=== PATIENT | female | born 1975 | race American Indian/Alaskan Native ===

== ENCOUNTER 2016-06-13 11:01 | Emergency (ER) | payer MEDICAID ==
[2016-06-13 11:39] VITALS: BP 142/107
--- NOTE | 2016-06-13 11:57 | Emergency Department Report ---
Chief Complaint: Headache Stated Complaint: DIZZY/HEADACHE Time Seen by Provider: 06/13/16 11:51 - HPI History of Present Illness: 41-year-old female comes in with complaint of headache since Sunday she reports that the pain is all over. She reports that she had surgery on her nose and since then she's had headaches that, radiates from the nose across the face now back to the back of the head. She complains of dizziness since Sunday she does elicit that she has not had any blood pressure medicine to an half weeks. Secondary to insurance is not active. She is clean complain of nausea no vomiting. - Exam Vital Signs: Vital Signs 06/13/16 11:35 Temperature 98.0 F Pulse Rate 88 Respiratory 18 Rate Blood Pressure 142/107 O2 Sat by Pulse 98 Oximetry Physical Exam: Alert and oriented 3 no acute distress, cardiovascular S1-S2 regular rate and rhythm respiratory clear dictation bilateral some head tenderness from the maxillary sinus to the temporal and parietal area. MSE screening note: Focused history and physical exam performed. Due to findings the following was ordered: Patient been evaluated by this NSE provider. She'll be evaluated by fast track. ED Disposition for MSE Condition: Stable
[2016-06-13] MEDS ORDERED: TORADOL IM ONE (12:59)
--- NOTE | 2016-06-13 13:17 | Emergency Department Report ---
ED Headache HPI - General Chief Complaint: Headache Stated Complaint: DIZZY/HEADACHE Time Seen by Provider: 06/13/16 11:51 Source: patient Exam Limitations: no limitations - History of Present Illness Initial Comments: Patient presents today with a headache and dizziness 2 days she has taken Excedrin with no relief. She has a history of migraine. She states that she is having nausea, decreased appetite and the migraine is sensitive to light and noise. She states that this began in 2014 after having nasal surgery through ENT. She also admits to right ear pain and sinus pressure. Patient denies injury, hitting her head, LOC. Quality: severe Head Injury Location: other ("all over head") Associated Symptoms: denies symptoms, nasal congestion. denies: loss of consciousness, stiff neck Allergies/Adverse Reactions: Allergies No Known Allergies Allergy (Verified 06/13/16 11:40) Home Medications: Ambulatory Orders Fluticasone [Flonase] 1 spray NS QDAY #1 bottle 06/21/14 Ibuprofen [Motrin 800 MG tab] 800 mg PO Q8H PRN #30 tablet 06/21/14 Prednisone 40 mg PO DAILY #10 tablet 06/21/14 SUMAtriptan SUCCINATE [Imitrex] 100 mg PO ONCE PRN #10 tablet 09/24/14 amLODIPine [Norvasc] 5 mg PO DAILY #30 tab 09/24/14 Acetaminophen/Codeine [Tylenol #3] 1 tab PO Q6H PRN #20 tab 12/17/14 Doxycycline [Vibramycin CAP] 100 mg PO Q12HR #20 capsule 12/17/14 Ibuprofen [Motrin 600 MG tab] 600 mg PO Q8H PRN #30 tablet 12/17/14 metroNIDAZOLE [Flagyl TAB] 500 mg PO Q12HR #20 tab 12/17/14 Amoxicillin [Amoxicillin TAB] 875 mg PO BID #20 tablet 06/13/16 SUMAtriptan SUCCINATE [Imitrex] 50 mg PO BID #7 tab 06/13/16 amLODIPine [Norvasc] 10 mg PO DAILY #14 tab 06/13/16 ED Review of Systems ROS: Stated complaint: DIZZY/HEADACHE Other details as noted in HPI Constitutional: denies: chills, fever Eyes: other (patient admits to eye drainage, watering). denies: eye pain, eye discharge, vision change ENT: as per HPI Respiratory: denies: cough, shortness of breath, wheezing Cardiovascular: denies: chest pain, palpitations Gastrointestinal: denies: abdominal pain, nausea, diarrhea Genitourinary: denies: urgency, dysuria, discharge Musculoskeletal: as per HPI Skin: denies: rash, lesions Neurological: as per HPI, headache Psychiatric: anxiety (history) ED Past Medical Hx - Past Medical History Hx Hypertension: Yes Hx Congestive Heart Failure: No Hx Diabetes: No Hx Deep Vein Thrombosis: No Hx Renal Disease: No Hx Sickle Cell Disease: No Hx Headaches / Migraines: Yes Hx Seizures: No Hx Psychiatric Treatment: Yes (ANXIETY / DEPRESSION) Hx Asthma: No Hx COPD: No Hx HIV: No Additional medical history: INSOMNIA - Surgical History Additional Surgical History: x2. NASAL SURGERY. TUBAL LIGATION - Social History Smoking Status: Current Every Day Smoker Substance Use Type: None - Medications Home Medications: Home Medications Medication Instructions Recorded Confirmed Last Taken Type Fluticasone [Flonase] 1 spray NS QDAY #1 bottle 06/21/14 07/14/14 07/14/14 Rx Ibuprofen [Motrin 800 MG tab] 800 mg PO Q8H PRN #30 tablet 06/21/14 07/14/14 Rx Prednisone 40 mg PO DAILY #10 tablet 06/21/14 07/14/14 Unknown Rx SUMAtriptan SUCCINATE [Imitrex] 100 mg PO ONCE PRN #10 tablet 09/24/14 Unknown Rx amLODIPine [Norvasc] 5 mg PO DAILY #30 tab 09/24/14 Unknown Rx Acetaminophen/Codeine [Tylenol #3] 1 tab PO Q6H PRN #20 tab 12/17/14 Unknown Rx Doxycycline [Vibramycin CAP] 100 mg PO Q12HR #20 capsule 12/17/14 Unknown Rx Ibuprofen [Motrin 600 MG tab] 600 mg PO Q8H PRN #30 tablet 12/17/14 Unknown Rx metroNIDAZOLE [Flagyl TAB] 500 mg PO Q12HR #20 tab 12/17/14 Unknown Rx Amoxicillin [Amoxicillin TAB] 875 mg PO BID #20 tablet 06/13/16 Unknown Rx SUMAtriptan SUCCINATE [Imitrex] 50 mg PO BID #7 tab 06/13/16 Unknown Rx amLODIPine [Norvasc] 10 mg PO DAILY #14 tab 06/13/16 Unknown Rx ED Physical Exam - General Limitations: No Limitations General appearance: alert, in no apparent distress - Head Head exam: Present: atraumatic, normocephalic - Eye Eye exam: Present: normal appearance Pupils: Present: other (small amount of clear drainage present) - ENT ENT exam: Present: mucous membranes moist, TM's normal bilaterally - Expanded ENT Exam Expanded Mouth exam: Present: normal external inspection Teeth exam: Present: normal inspection Throat exam: Positive: normal inspection - Neck Neck exam: Present: normal inspection, tenderness (bilateral posterior cervical , no midline tenderness), full ROM - Respiratory Respiratory exam: Present: normal lung sounds bilaterally. Absent: respiratory distress, wheezes - Cardiovascular Cardiovascular Exam: Present: regular rate, normal rhythm. Absent: systolic murmur, diastolic murmur, rubs, gallop - GI/Abdominal GI/Abdominal exam: Present: soft, normal bowel sounds - Extremities Exam Extremities exam: Present: normal inspection, full ROM - Back Exam Back exam: Present: normal inspection, full ROM - Neurological Exam Neurological exam: Present: alert, oriented X3, CN II-XII intact, normal gait - Psychiatric Psychiatric exam: Present: normal affect, normal mood - Skin Skin exam: Present: warm, dry, intact, normal color. Absent: rash ED Course Vital Signs 06/13/16 11:35 Temperature 98.0 F Pulse Rate 88 Respiratory 18 Rate Blood Pressure 142/107 O2 Sat by Pulse 98 Oximetry ED Medical Decision Making - Medical Decision Making Patient presents with her typical migraine. She has had chronic migraines since 2014. She has had CT of her head in the past that was within normal. I will give her 2 weeks of amlodipine for her blood pressure due to her being out. I will give her Zofran for her nausea and a refill on Imitrex which she has taken in the past. She also received Toradol IM injection while in ED. I will also give her amoxicillin twice a day 10 days for sinusitis. - Differential Diagnosis migraine, headache Critical Care Time: No Critical care attestation.: If time is entered above; I have spent that time in minutes in the direct care of this critically ill patient, excluding procedure time. ED Disposition Clinical Impression: Chronic migraine, Sinusitis, acute, Nausea, Hypertension Clinical Impression: (Ruled Out): Chronic migraine w/o aura w/o status migrainosus, not intractable Disposition: DISCHARGED TO HOME OR SELFCARE Is pt being admited?: No Does the pt Need Aspirin: No Condition: Stable Instructions: Hypertension (ED), Migraine Headache (ED), Low Sodium Diet (ED), DASH Eating Plan (ED), Chronic Hypertension (ED), Sinusitis (ED) Prescriptions: Amoxicillin [Amoxicillin TAB] 875 mg PO BID #20 tablet SUMAtriptan SUCCINATE [Imitrex] 50 mg PO BID #7 tab amLODIPine [Norvasc] 10 mg PO DAILY #14 tab Referrals: [facility] [Outside] - 3-5 Days Forms: Work/School Release Form(ED) Time of Disposition: 13:28
== END 2016-06-13 13:46 | disposition home or self-care (01) ==
LOC: ED 11:01
DX: G43.909 Migraine, unspecified, not intractable, without status migrainosus (principal); J01.90 Acute sinusitis, unspecified; I10 Essential (primary) hypertension; R11.0 Nausea; F41.9 Anxiety disorder, unspecified
CPT/HCPCS: 96372; 99282; J1885

== ENCOUNTER 2016-11-07 14:17 | Emergency (ER) | payer MEDICAID ==
--- NOTE | 2016-11-07 14:55 | Emergency Department Report ---
Chief Complaint: Abdominal Pain Stated Complaint: LOW ABDOMINAL PAIN/LT SIDE Time Seen by Provider: 11/07/16 14:49 - HPI History of Present Illness: PT c/o RLQ abd pain x 1 year. PT states she was seen before and had US which showed a "mass" - ROS Review of Systems: - fever + abd pain + back pain + irregular menstrual cycle - Exam Vital Signs: Vital Signs 11/07/16 14:37 Temperature 98.4 F Pulse Rate 107 H Respiratory 16 Rate Blood Pressure 118/77 O2 Sat by Pulse 98 Oximetry Physical Exam: pt looks well, non toxic abd soft and non tender MSE screening note: Focused history and physical exam performed. Due to findings the following was ordered: labs ED Disposition for MSE Condition: Stable Instructions: Abdominal Pain (ED)
[2016-11-07 15:10] LABS: Basophils % (Auto) 0.4 % (0.0-1.8); Eosinophils % (Auto) 2.2 % (0.0-4.3); Hematocrit 39.2 % (30.3-42.9); Hemoglobin 12.8 gm/dl (10.1-14.3); Mean Corpuscular HGB Conc 33 % (30-34); Mean Corpuscular Hemoglobin 30 pg (28-32); Mean Corpuscular Volume 91 fl (79-97); Platelet Count 262 K/mm3 (140-440); Red Blood Count 4.31 M/mm3 (3.65-5.03); Red Cell Distribution Width 14.6 % (13.2-15.2)
[2016-11-07 15:26] LABS: Alanine Aminotransferase 16 units/L (7-56); Albumin 4.6 g/dL (3.9-5); Albumin/Globulin Ratio 1.4 %; Alkaline Phosphatase 52 units/L (35-129); Anion Gap 16 mmol/L; BUN/Creatinine Ratio 13.75; Blood Urea Nitrogen 11 mg/dL (7-17); Calcium 9.1 mg/dL (8.4-10.2); Carbon Dioxide 28 mmol/L (22-30); Glucose 107 mg/dL (65-100); Lipase 22 units/L (13-60); Sodium 143 mmol/L (137-145); Total Protein 7.8 g/dL (6.3-8.2)
[2016-11-07] MEDS ORDERED: TORADOL IM ONE (22:02)
[2016-11-07] MEDS ORDERED: PERCOCET 5/325 PO ONE (22:02)
[2016-11-07 22:51] LABS: Bilirubin,Urine NEG (Negative); Blood,Urine MOD (Negative); Ketones,Urine NEG (Negative); Leukocyte Esterase,Urine NEG (Negative); Mucus,Urine FEW /HPF; Nitrite,Urine NEG (Negative); Protein,Urine <15 mg/dL mg/dL (Negative); Urobilinogen,Urine < 2.0 mg/dL (<2.0)
--- NOTE | 2016-11-07 23:34 | Ultrasound Report ---
FINAL REPORT EXAM: US TRANSVAGINAL HISTORY: rlq pain, hx of ovarian "mass vs cyst" TECHNIQUE: Real-time sonography was performed of the pelvis endovaginally. Images are submitted for interpretation. PRIORS: None. FINDINGS: The uterus appears normal measuring 8.2 x 4.1 x 5.4. The endometrial stripe appears normal measuring 6 mm. The right ovary appears normal measuring 2.6 x 1.7 x 1.6 cm. The left ovary was not identified. Color duplex evaluation of the right ovary shows flow. There is no free pelvic fluid. IMPRESSION: Normal uterus and right ovary. Left ovary not identified.
--- NOTE | 2016-11-07 23:35 | Ultrasound Report ---
FINAL REPORT EXAM: US PELVIS DUPLEX DOPPLER COMP HISTORY: rlq pain, hx of ovarian "mass vs cyst" TECHNIQUE: Real-time sonography was performed of the pelvis transabdominally. Images are submitted for interpretation. PRIORS: None. FINDINGS: The uterus appears normal measuring 8.2 x 4.1 x 5.4. The endometrial stripe appears normal measuring 6 mm. The right ovary appears normal measuring 2.6 x 1.7 x 1.6 cm. The left ovary was not identified. Color duplex evaluation of the right ovary shows flow. There is no free pelvic fluid. IMPRESSION: Normal uterus and right ovary. Left ovary not identified.
[2016-11-07] MEDS ORDERED: ZOFRAN IV ONE (23:48)
[2016-11-08] MEDS ORDERED: NACL ONE (00:41)
--- NOTE | 2016-11-08 01:01 | Emergency Department Report ---
ED Abdominal Pain HPI - General Chief Complaint: Abdominal Pain Stated Complaint: LOW ABDOMINAL PAIN/LT SIDE Time Seen by Provider: 11/07/16 14:49 Source: patient Mode of arrival: Ambulatory Limitations: No Limitations - History of Present Illness Initial Comments: 41-year-old female with a past medical history hypertension, anxiety, and depression with previous surgical history 2 and tubal ligation presents to the hospital complaining of ongoing right lower quadrant pain times one year. Symptoms are progressively worsening. Patient states she was evaluated 3 months ago had ultrasound that revealed a "mass in her abdomen". Patient typically has regular menstrual cycles reports she had 3 separate episodes of vaginal bleeding this month. Patient never followed up after receiving her ultrasound and did not reschedule her PUBLIC SAFETY TELECOMMUNICATOR visit. No reports of fever, nausea, vomiting, or dysuria. Severity scale (0 -10): 0 - Related Data Previous Rx's Medication Instructions Recorded Last Taken Type Fluticasone [Flonase] 1 spray NS QDAY #1 bottle 06/21/14 07/14/14 Rx Doxycycline [Vibramycin CAP] 100 mg PO Q12HR #20 capsule 12/17/14 Unknown Rx metroNIDAZOLE [Flagyl TAB] 500 mg PO Q12HR #20 tab 12/17/14 Unknown Rx amLODIPine [Norvasc] 10 mg PO DAILY #14 tab 06/13/16 Unknown Rx HYDROcodone/APAP 7.5-325 [[place] 1 each PO Q6HR PRN #20 tablet 11/08/16 Unknown Rx 7.5/325] Ibuprofen [Motrin] 800 mg PO Q8HR PRN #30 tablet 11/08/16 Unknown Rx Ondansetron [Zofran Odt] 4 mg PO Q8HR PRN #20 tab.rapdis 11/08/16 Unknown Rx Allergies Allergy/AdvReac Type Severity Reaction Status Date / Time No Known Allergies Allergy Verified 06/13/16 11:40 ED Review of Systems ROS: Stated complaint: LOW ABDOMINAL PAIN/LT SIDE Other details as noted in HPI Comment: All other systems reviewed and negative Other: Constitutional: No fevers chills Eyes: No eye pain visual changes ENT: No ear pain or throat pain Neck: Denies pain Respiratory: Denies cough wheezing shortness of breath Cardiovascular: Denies chest pain, palpitations, syncope GI: as per hpi : Denies dysuria Musculoskeletal: Denies back pain Skin: Denies rash, lesions, erythema Neurologic: Denies headache, numbness, weakness Psychiatric: Denies suicidal ideation, hallucinations ED Past Medical Hx - Past Medical History Hx Hypertension: Yes Hx Congestive Heart Failure: No Hx Diabetes: No Hx Deep Vein Thrombosis: No Hx Renal Disease: No Hx Sickle Cell Disease: No Hx Headaches / Migraines: Yes Hx Seizures: No Hx Psychiatric Treatment: Yes (ANXIETY / DEPRESSION) Hx Asthma: No Hx COPD: No Hx HIV: No Additional medical history: INSOMNIA - Surgical History Additional Surgical History: x2. NASAL SURGERY. TUBAL LIGATION - Social History Smoking Status: Current Every Day Smoker Substance Use Type: None - Medications Home Medications: Home Medications Medication Instructions Recorded Confirmed Last Taken Type Fluticasone [Flonase] 1 spray NS QDAY #1 bottle 06/21/14 11/08/16 07/14/14 Rx Doxycycline [Vibramycin CAP] 100 mg PO Q12HR #20 capsule 12/17/14 11/08/16 Unknown Rx metroNIDAZOLE [Flagyl TAB] 500 mg PO Q12HR #20 tab 12/17/14 11/08/16 Unknown Rx amLODIPine [Norvasc] 10 mg PO DAILY #14 tab 06/13/16 11/08/16 Unknown Rx HYDROcodone/APAP 7.5-325 [[place] 1 each PO Q6HR PRN #20 tablet 11/08/16 Unknown Rx 7.5/325] Ibuprofen [Motrin] 800 mg PO Q8HR PRN #30 tablet 11/08/16 Unknown Rx Ondansetron [Zofran Odt] 4 mg PO Q8HR PRN #20 tab.rapdis 11/08/16 Unknown Rx ED Physical Exam - General Limitations: No Limitations - Other Other exam information: General: No limitations, patient is alert in no acute distress Head exam: Atraumatic, normocephalic Eyes exam: Normal appearance ENT: Moist mucous membrane, normal oropharynx Neck exam: Normal inspection, full range of motion Respiratory exam: Clear to auscultation bilateral, no wheezes, rales, crackles Cardiovascular: Normal rate and rhythm, normal heart sounds Abdomen: Soft, nondistended, RLQ tenderness, with normal bowel sounds, no rebound, or guarding Extremity: Full range of motion normal inspection no deformity Back: Normal Inspection, full range of motion, no tenderness Neurologic: Alert, oriented x3, cranial nerves intact, no motor or sensory deficit Psychiatric: normal affect, normal mood Skin: Warm, dry, intact ED Course Vital Signs 11/07/16 11/07/16 11/07/16 14:37 21:47 21:51 Temperature 98.4 F Pulse Rate 107 H Respiratory 16 Rate Blood Pressure 118/77 O2 Sat by Pulse 98 100 100 Oximetry 11/07/16 11/07/16 11/07/16 21:58 22:01 22:16 Temperature Pulse Rate Respiratory 18 Rate Blood Pressure 123/74 O2 Sat by Pulse 100 99 Oximetry 11/07/16 11/07/16 11/07/16 22:20 22:58 23:00 Temperature Pulse Rate Respiratory Rate Blood Pressure 123/74 116/78 114/63 O2 Sat by Pulse 100 99 98 Oximetry 11/07/16 11/08/16 23:30 00:00 Temperature Pulse Rate Respiratory Rate Blood Pressure 117/75 118/73 O2 Sat by Pulse 100 98 Oximetry ED Medical Decision Making - Lab Data Result diagrams: 11/07/16 14:52 11/07/16 14:52 - Radiology Data Radiology results: report reviewed Transvaginal ultrasound by Doppler and pelvic ultrasound did not reveal any acute abnormality. Left ovary not visualized CT abdomen and pelvis IV contrast: No acute findings. - Medical Decision Making Patient offered pelvic exam given normal imaging findings. Patient declined stating no concerns for STD. Pain has been ongoing times one year. No acute lab, urine, or imaging abnormality identified today. Outpatient follow-up with PUBLIC SAFETY TELECOMMUNICATOR will be encouraged - Differential Diagnosis ovarian cyst, renal colic, ectopic , UTI Critical Care Time: No Critical care attestation.: If time is entered above; I have spent that time in minutes in the direct care of this critically ill patient, excluding procedure time. ED Disposition Clinical Impression: Chronic right lower quadrant pain, Metrorrhagia Disposition: - TO HOME OR SELFCARE Is pt being admited?: No Does the pt Need Aspirin: No Condition: Stable Instructions: Abdominal Pain (ED), Dysfunctional Uterine Bleeding (ED) Additional Instructions: Take the medication as prescribed. Return if symptoms worsen. Follow-up with your PUBLIC SAFETY TELECOMMUNICATOR doctor for further management. Take the copy of your ultrasound and CAT scan to your doctor for follow-up Prescriptions: HYDROcodone/APAP 7.5-325 [[place] 7.5/325] 1 each PO Q6HR PRN #20 tablet PRN Reason: Pain Ibuprofen [Motrin] 800 mg PO Q8HR PRN #30 tablet PRN Reason: Pain Ondansetron [Zofran Odt] 4 mg PO Q8HR PRN #20 tab.rapdis PRN Reason: Nausea And Vomiting Referrals: your, mechanical engineering manager doctor [Other] - 3-5 Days Time of Disposition: 02:40
[2016-11-08] MEDS ORDERED: MORPHINE IV ONE (01:43)
--- NOTE | 2016-11-08 02:03 | Cat Scan Report ---
FINAL REPORT PROCEDURE: CT ABDOMEN PELVIS W CON TECHNIQUE: Computerized axial tomography of the abdomen and pelvis was performed after the IV injection of iodinated nonionic contrast. HISTORY: rlq pain COMPARISON: No prior studies are available for comparison. FINDINGS: Visualized lower thorax: No significant abnormality. Liver: Normal size and attenuation. Spleen: Normal size and attenuation. Gallbladder and biliary system: Normal. Pancreas: Normal. Adrenals: Normal. Kidneys: There are no kidney stones or ureteral stones. There is no hydronephrosis.. GI tract: There is no bowel obstruction, colitis or enteritis. The appendix is normal.. Lymph nodes and mesentery: Normal. Vasculature: Normal. Bladder: Normal. Reproductive organs: The uterus and ovaries are unremarkable.. Peritoneum: There is no ascites, free air, abscess or adenopathy.. Musculoskeletal structures: No significant abnormality. Other: None. IMPRESSION: There are no kidney stones or ureteral stones. There is no hydronephrosis.. There is no bowel obstruction, colitis or enteritis. The appendix is normal.. The uterus and ovaries are unremarkable.. There is no ascites, free air, abscess or adenopathy..
[2016-11-08 03:11] VITALS: BP 110/68
== END 2016-11-08 03:00 | disposition home or self-care (01) ==
LOC: ED 14:17
DX: N92.1 Excessive and frequent menstruation with irregular cycle (principal); R10.31 Right lower quadrant pain; R19.00 Intra-abdominal and pelvic swelling, mass and lump, unspecified site; G89.29 Other chronic pain; I10 Essential (primary) hypertension; G43.909 Migraine, unspecified, not intractable, without status migrainosus; F41.9 Anxiety disorder, unspecified; F32.9 Major depressive disorder, single episode, unspecified; F17.200 Nicotine dependence, unspecified, uncomplicated
CPT/HCPCS: 36415; 74177; 76830; 80053; 81001; 83690; 84703; 85025; 93975; 96372; 96374; 96375; 99284; J1885; J2270; J2405; Q9967

== ENCOUNTER 2018-06-14 19:55 | Emergency (ER) | payer MEDICAID ==
[2018-06-15] MEDS ORDERED: TORADOL IV ONE (00:44)
[2018-06-15] MEDS ORDERED: BENADRYL IV ONE (00:44)
[2018-06-15] MEDS ORDERED: NACL 0.9% 1000 ML 1,000 ML IV ONE (00:44)
[2018-06-15] MEDS ORDERED: REGLAN IV ONE (00:44)
--- NOTE | 2018-06-15 01:27 | Emergency Department Report ---
ED Headache HPI - General Chief Complaint: Headache Stated Complaint: HYPERTENSVE EPISODE Time Seen by Provider: 06/15/18 00:29 Source: patient - History of Present Illness Initial Comments: 33-year-old female history of migraines presents to ED with 3 day history of right-sided headache. Patient reports associated dizziness, also right ear pain. Patient denies fever, nausea or vomiting. She reports history of multiple sinus infections in the past. Reports some nasal congestion as well. Timing/Duration: other (3 days) Quality: moderate Recent Head Trauma: no recent headache/trauma Associated Symptoms: fatigue, nasal congestion. denies: fever/chills, nausea/vomiting Allergies/Adverse Reactions: Allergies No Known Allergies Allergy (Verified 06/14/18 20:07) Home Medications: Ambulatory Orders Fluticasone [Flonase] 1 spray NS QDAY #1 bottle 06/21/14 Doxycycline [Vibramycin CAP] 100 mg PO Q12HR #20 capsule 12/17/14 metroNIDAZOLE [Flagyl TAB] 500 mg PO Q12HR #20 tab 12/17/14 amLODIPine [Norvasc] 10 mg PO DAILY #14 tab 06/13/16 HYDROcodone/APAP 7.5-325 [[place] 7.5/325] 1 each PO Q6HR PRN #20 tablet 11/08/16 Ibuprofen [Motrin] 800 mg PO Q8HR PRN #30 tablet 11/08/16 Ondansetron [Zofran Odt] 4 mg PO Q8HR PRN #20 tab.rapdis 11/08/16 Butalb/Acetamin/Caff 50-325-40 [Fioricet] 1 tab PO Q6HR PRN #10 tab 06/15/18 Naproxen [Naprosyn] 500 mg PO BID #20 tablet 06/15/18 ED Review of Systems ROS: Stated complaint: HYPERTENSVE EPISODE Other details as noted in HPI Comment: All other systems reviewed and negative Constitutional: malaise. denies: chills, fever ENT: congestion Respiratory: denies: cough Gastrointestinal: denies: nausea, vomiting Neurological: headache. denies: numbness, paresthesias ED Past Medical Hx - Past Medical History Previous Medical History?: Yes Hx Hypertension: Yes Hx Congestive Heart Failure: No Hx Diabetes: No Hx Deep Vein Thrombosis: No Hx Renal Disease: No Hx Sickle Cell Disease: No Hx Headaches / Migraines: Yes Hx Seizures: No Hx Psychiatric Treatment: Yes (ANXIETY / DEPRESSION) Hx Asthma: No Hx COPD: No Hx HIV: No Additional medical history: INSOMNIA, vertigo - Surgical History Past Surgical History?: Yes Additional Surgical History: x2. NASAL SURGERY. TUBAL LIGATION - Social History Smoking Status: Former Smoker Substance Use Type: Marijuana - Medications Home Medications: Home Medications Medication Instructions Recorded Confirmed Last Taken Type Fluticasone [Flonase] 1 spray NS QDAY #1 bottle 06/21/14 11/08/16 07/14/14 Rx Doxycycline [Vibramycin CAP] 100 mg PO Q12HR #20 capsule 12/17/14 11/08/16 Unknown Rx metroNIDAZOLE [Flagyl TAB] 500 mg PO Q12HR #20 tab 12/17/14 11/08/16 Unknown Rx amLODIPine [Norvasc] 10 mg PO DAILY #14 tab 06/13/16 11/08/16 Unknown Rx HYDROcodone/APAP 7.5-325 [[place] 1 each PO Q6HR PRN #20 tablet 11/08/16 Unknown Rx 7.5/325] Ibuprofen [Motrin] 800 mg PO Q8HR PRN #30 tablet 11/08/16 Unknown Rx Ondansetron [Zofran Odt] 4 mg PO Q8HR PRN #20 tab.rapdis 11/08/16 Unknown Rx Butalb/Acetamin/Caff 50-325-40 1 tab PO Q6HR PRN #10 tab 06/15/18 Unknown Rx [Fioricet] Naproxen [Naprosyn] 500 mg PO BID #20 tablet 06/15/18 Unknown Rx ED Physical Exam - General Limitations: No Limitations General appearance: alert, in no apparent distress - Head Head exam: Present: atraumatic, normocephalic - Eye Eye exam: Present: normal appearance - ENT ENT exam: Present: other (right frontal and maxillary sinus tenderness) - Neck Neck exam: Present: normal inspection - Respiratory Respiratory exam: Present: normal lung sounds bilaterally. Absent: respiratory distress - Cardiovascular Cardiovascular Exam: Present: normal rhythm, tachycardia - GI/Abdominal GI/Abdominal exam: Present: soft. Absent: distended, tenderness - Extremities Exam Extremities exam: Present: normal inspection - Neurological Exam Neurological exam: Present: alert, oriented X3, CN II-XII intact. Absent: motor sensory deficit - Psychiatric Psychiatric exam: Present: normal affect, normal mood - Skin Skin exam: Present: warm, dry, intact, normal color ED Course Vital Signs 06/14/18 20:01 Temperature 99.4 F Pulse Rate 110 H Respiratory 16 Rate Blood Pressure 144/84 O2 Sat by Pulse 97 Oximetry ED Medical Decision Making - Radiology Data Radiology results: report reviewed, image reviewed - Medical Decision Making 43 yo F, likely right sided migraine AL[place]. CT Head negative. Pt given IV fluids, toradol, reglan, and benadryl. Now reports resolution of ALCALA. Normal neuro exam. Will discharge at this time. Return precautions given. - Differential Diagnosis migraine, sinusitis, URI Critical care attestation.: If time is entered above; I have spent that time in minutes in the direct care of this critically ill patient, excluding procedure time. ED Disposition Clinical Impression: Migraine headache Disposition: TO HOME OR SELFCARE Is pt being admited?: No Condition: Stable Prescriptions: Butalb/Acetamin/Caff 50-325-40 [Fioricet] 1 tab PO Q6HR PRN #10 tab PRN Reason: Headache Naproxen [Naprosyn] 500 mg PO BID #20 tablet Referrals: JONAS VILLANUEVA MD [Primary Care Provider] - 3-5 Days NICHOLE KANG MD [Referring] - 3-5 Days Time of Disposition: 02:19
--- NOTE | 2018-06-15 01:53 | Cat Scan Report ---
FINAL REPORT PROCEDURE: CT HEAD/BRAIN WO CON TECHNIQUE: Computerized tomography of the head was performed without contrast material. HISTORY: headache COMPARISON: No prior studies are available for comparison. FINDINGS: Skull and scalp: Normal. Paranasal sinuses: Normal. Ventricles and subarachnoid spaces: Normal. Cerebrum: No evidence of hemorrhage, acute infarction or mass . Cerebellum and brainstem: No evidence of hemorrhage, acute infarction or mass. Vasculature: Normal. Comments: None. IMPRESSION: Normal Examination
[2018-06-15 02:22] VITALS: BP 118/75
== END 2018-06-15 03:13 | disposition home or self-care (01) ==
LOC: ED 19:55
DX: G43.909 Migraine, unspecified, not intractable, without status migrainosus (principal); I10 Essential (primary) hypertension; F41.9 Anxiety disorder, unspecified; F32.9 Major depressive disorder, single episode, unspecified; F12.10 Cannabis abuse, uncomplicated; Z98.51 Tubal ligation status; Z87.891 Personal history of nicotine dependence
CPT/HCPCS: 70450; 96361; 96374; 96375; 99284; J1200; J1885; J2765; J7030

== ENCOUNTER 2018-08-11 13:50 | Emergency (ER) | payer MEDICAID ==
--- NOTE | 2018-08-11 14:09 | Emergency Department Report ---
Chief Complaint: Upper Respiratory Infection Stated Complaint: CHEST PAIN/(R) SIDE PAIN/COUGH Time Seen by Provider: 08/11/18 14:06 - HPI History of Present Illness: COUGH 5 DAYS CHILLS POS SOB CHEST PAIN ON RIGHT SIDE OTC MEDS NOT HELPING NO HX BLOOD CLOTS HER 101 SAT 100% SSIDE MED PCP RX BP MED PMH HTN VERTIGO STOPPED SMOKING 8 M AGO NO DRUGS NO ETOH MENSES CURRENT MOM- DM, HUEY., HTN DAD AW MSE COMPLETED MSE screening note: Focused history and physical exam performed. Due to findings the following was ordered: ED Disposition for MSE Condition: Stable
[2018-08-11 14:11] VITALS: BP 137/82
--- NOTE | 2018-08-11 15:16 | XRay Report ---
PROCEDURE: XR CHEST ROUTINE 2V TECHNIQUE: Chest radiograph, frontal and lateral views. HISTORY: COUGH AND CP COMPARISONS: None currently available. FINDINGS: Cardiac silhouette is within normal limits. There is no effusion. There is no pneumothorax. There is no consolidation. Prominent bilateral perihi lar peribronchial thickening. Nodular density in the right perihilar region and measures approximatel y 5 mm. There are no suspicious osseous lesions. IMPRESSION: * Pulmonary findings may represent pneumonia (possibly viral), bronchitis, or pulmonary vascular con gestion. * Nonspecific nodular density in the right midlung. Comparison with priors or a CT chest may be help ful if clinically indicated. This document is electronically signed by David Lombardi MD., August 11 2018 03:14:38 PM ET
[2018-08-11 15:33] LABS: Hematocrit 36.1 % (30.3-42.9); Hemoglobin 12.1 gm/dl (10.1-14.3); Mean Corpuscular HGB Conc 33 % (30-34); Mean Corpuscular Volume 93 fl (79-97); Platelet Count 262 K/mm3 (140-440); Red Cell Distribution Width 14.2 % (13.2-15.2)
[2018-08-11 15:44] LABS: BUN/Creatinine Ratio 11; Blood Urea Nitrogen 8 mg/dL (7-17); Calcium 9.4 mg/dL (8.4-10.2); Hemolysis Index 4
[2018-08-11] MEDS ORDERED: TESSALON PERLES PO ONE (16:46)
[2018-08-11] MEDS ORDERED: LEVAQUIN PO ONE (16:48)
--- NOTE | 2018-08-11 16:48 | Emergency Department Report ---
Upper Respiratory HPI - HPI Chief Complaint: Upper Respiratory Infection Stated Complaint: CHEST PAIN/(R) SIDE PAIN/COUGH Time Seen by Provider: 08/11/18 14:06 Duration: 1 week URI Symptoms: Rhinorrhea: Yes, Sore Throat: No, Ear Pain: No, Cough: Yes, Shortness of Breath: No, Sick Contacts: No, Unable to Take Fluids: No, Urine Output Abnormal: No, Listless Behavior: No Other History: This is a 43-year-old female nontoxic, well nourished in appearance, no acute signs of distress presents to the ED with c/o of productive cough, body aches, rhinorrhea, nasal congestion x1 week. Patient describes productive cough as yellow mucus production. Patient denies any sick contact. Patient denies any recent travels, long car, recent hospital stays. Patient denies any calf pain or calf tenderness. Patient denies any chest pain, short of breath, fever, chills, nausea, vomiting, hemoptysis, numbness, tingling, headache or stiff neck. Patient denies any allergies. - Home Meds and Allergies Home Medications: Previous Rx's Medication Instructions Recorded Last Taken Type Fluticasone [Flonase] 1 spray NS QDAY #1 bottle 06/21/14 07/14/14 Rx Doxycycline [Vibramycin CAP] 100 mg PO Q12HR #20 capsule 12/17/14 Unknown Rx metroNIDAZOLE [Flagyl TAB] 500 mg PO Q12HR #20 tab 12/17/14 Unknown Rx amLODIPine [Norvasc] 10 mg PO DAILY #14 tab 06/13/16 Unknown Rx HYDROcodone/APAP 7.5-325 [[place] 1 each PO Q6HR PRN #20 tablet 11/08/16 Unknown Rx 7.5/325] Ibuprofen [Motrin] 800 mg PO Q8HR PRN #30 tablet 11/08/16 Unknown Rx Ondansetron [Zofran Odt] 4 mg PO Q8HR PRN #20 tab.rapdis 11/08/16 Unknown Rx Butalb/Acetamin/Caff 50-325-40 1 tab PO Q6HR PRN #10 tab 06/15/18 Unknown Rx [Fioricet] Naproxen [Naprosyn] 500 mg PO BID #20 tablet 06/15/18 Unknown Rx Benzonatate [Tessalon Perle] 100 mg PO Q8H PRN #20 capsule 08/11/18 Unknown Rx Ibuprofen [Motrin] 600 mg PO Q8H PRN #20 tablet 08/11/18 Unknown Rx Prednisone [predniSONE 10 mg 10 mg PO .TAPER #1 tab.ds.pk 08/11/18 Unknown Rx (6-Day Pack, 21 Tabs)] levoFLOXacin [Levaquin TAB] 750 mg PO QDAY #7 tablet 08/11/18 Unknown Rx Allergies/Adverse Reactions: Allergies Allergy/AdvReac Type Severity Reaction Status Date / Time No Known Allergies Allergy Verified 06/14/18 20:07 ED Review of Systems ROS: Stated complaint: CHEST PAIN/(R) SIDE PAIN/COUGH Other details as noted in HPI Constitutional: denies: chills, fever Eyes: denies: eye pain, eye discharge, vision change ENT: congestion. denies: ear pain, throat pain Respiratory: cough. denies: shortness of breath, wheezing Cardiovascular: denies: chest pain, palpitations Endocrine: no symptoms reported Gastrointestinal: denies: abdominal pain, nausea, diarrhea Genitourinary: denies: urgency, dysuria, discharge Musculoskeletal: denies: back pain, joint swelling, arthralgia Skin: denies: rash, lesions Neurological: denies: headache, weakness, paresthesias Psychiatric: denies: anxiety, depression Hematological/Lymphatic: denies: easy bleeding, easy bruising ED Past Medical Hx - Past Medical History Previous Medical History?: Yes Hx Hypertension: Yes Hx Congestive Heart Failure: No Hx Diabetes: No Hx Deep Vein Thrombosis: No Hx Renal Disease: No Hx Sickle Cell Disease: No Hx Headaches / Migraines: Yes Hx Seizures: No Hx Psychiatric Treatment: Yes (ANXIETY / DEPRESSION) Hx Asthma: No Hx COPD: No Hx HIV: No Additional medical history: INSOMNIA, vertigo - Surgical History Past Surgical History?: Yes Additional Surgical History: x2. NASAL SURGERY. TUBAL LIGATION - Social History Smoking Status: Never Smoker Substance Use Type: None - Medications Home Medications: Home Medications Medication Instructions Recorded Confirmed Last Taken Type Fluticasone [Flonase] 1 spray NS QDAY #1 bottle 06/21/14 11/08/16 07/14/14 Rx Doxycycline [Vibramycin CAP] 100 mg PO Q12HR #20 capsule 12/17/14 11/08/16 Unknown Rx metroNIDAZOLE [Flagyl TAB] 500 mg PO Q12HR #20 tab 12/17/14 11/08/16 Unknown Rx amLODIPine [Norvasc] 10 mg PO DAILY #14 tab 06/13/16 11/08/16 Unknown Rx HYDROcodone/APAP 7.5-325 [[place] 1 each PO Q6HR PRN #20 tablet 11/08/16 Unknown Rx 7.5/325] Ibuprofen [Motrin] 800 mg PO Q8HR PRN #30 tablet 11/08/16 Unknown Rx Ondansetron [Zofran Odt] 4 mg PO Q8HR PRN #20 tab.rapdis 11/08/16 Unknown Rx Butalb/Acetamin/Caff 50-325-40 1 tab PO Q6HR PRN #10 tab 06/15/18 Unknown Rx [Fioricet] Naproxen [Naprosyn] 500 mg PO BID #20 tablet 06/15/18 Unknown Rx Benzonatate [Tessalon Perle] 100 mg PO Q8H PRN #20 capsule 08/11/18 Unknown Rx Ibuprofen [Motrin] 600 mg PO Q8H PRN #20 tablet 08/11/18 Unknown Rx Prednisone [predniSONE 10 mg 10 mg PO .TAPER #1 tab.ds.pk 08/11/18 Unknown Rx (6-Day Pack, 21 Tabs)] levoFLOXacin [Levaquin TAB] 750 mg PO QDAY #7 tablet 08/11/18 Unknown Rx ED Bronchiolitis Physical Exam - Exam General: Vital signs noted. No distress. Alert and acting appropriately. Neurologic: Alert and oriented, no deficits. Musculoskeletal: Unremarkable. ED Bronchiolitis Tests - Testing Testing: CXR: Abnormal/Positive ED Physical Exam - General Limitations: No Limitations General appearance: alert, in no apparent distress - Head Head exam: Present: atraumatic, normocephalic - Eye Eye exam: Present: normal appearance - ENT ENT exam: Present: normal exam, normal orophraynx - Neck Neck exam: Present: normal inspection, full ROM. Absent: tenderness, meningismus, lymphadenopathy - Respiratory Respiratory exam: Present: normal lung sounds bilaterally. Absent: respiratory distress, wheezes, rales, rhonchi, stridor, chest wall tenderness, accessory muscle use, decreased breath sounds, prolonged expiratory - Cardiovascular Cardiovascular Exam: Present: regular rate, normal rhythm, normal heart sounds. Absent: irregular rhythm, systolic murmur, diastolic murmur, rubs, gallop - Extremities Exam Extremities exam: Present: normal inspection, full ROM - Back Exam Back exam: Present: normal inspection, full ROM - Neurological Exam Neurological exam: Present: alert, oriented X3 - Psychiatric Psychiatric exam: Present: normal affect, normal mood - Skin Skin exam: Present: warm, dry, intact, normal color. Absent: rash ED Course Vital Signs 08/11/18 14:10 Temperature 98.5 F Pulse Rate 101 H Respiratory 22 Rate Blood Pressure 137/82 O2 Sat by Pulse 100 Oximetry - Reevaluation(s) Reevaluation #1: 08/11/18 16:46 Patient is speaking in full sentences with no signs of distress noted. ED Medical Decision Making - Lab Data Result diagrams: 08/11/18 15:17 08/11/18 15:17 - Medical Decision Making This is a 43-year-old female that presents with pneumonia. Patient is stable and was examined by me. Chest x-ray has been obtained and dictated by radiologist with normal exam. Patient is notified of x-ray results with no questions noted. Patient is treated with levo. Patient did receive first dose of Levo in the ED PO. Patient was instructed to increase hydration, rest and take Motrin for fever episodes. Patient received tesslone perrls in the ED. Vitals stable. Patient is nonfebrile and normal heart rate. Patient was instructed Follow-up with a primary care doctor in 3-5 days or if symptoms worsen and continue return to emergency room as soon as possible. At time time of discharge, the patient does not seem toxic or ill in appearance. No acute signs of distress noted. Patient agrees to discharge treatment plan of care. No further questions noted by the patient. Critical care attestation.: If time is entered above; I have spent that time in minutes in the direct care of this critically ill patient, excluding procedure time. ED Disposition Clinical Impression: PNA (pneumonia) Qualifiers: Pneumonia type: due to unspecified organism Laterality: bilateral Lung location: unspecified part of lung Qualified Code(s): J18.9 - Pneumonia, unspecified organism Disposition: DC-01 TO HOME OR SELFCARE Is pt being admited?: No Does the pt Need Aspirin: No Condition: Stable Instructions: Bacterial Pneumonia (ED) Additional Instructions: Follow-up with a primary care doctor in 3-5 days or if symptoms worsen and continue return to emergency room as soon as possible. Prescriptions: levoFLOXacin [Levaquin TAB] 750 mg PO QDAY #7 tablet Ibuprofen [Motrin] 600 mg PO Q8H PRN #20 tablet PRN Reason: Pain Prednisone [predniSONE 10 mg (6-Day Pack, 21 Tabs)] 10 mg PO .TAPER #1 tab.ds.pk Benzonatate [Tessalon Perle] 100 mg PO Q8H PRN #20 capsule PRN Reason: Cough Referrals: HAKAN WALDEN MD [Primary Care Provider] - 3-5 Days [facility] [Referring] - 3-5 Days JONAS GONZALES MD [Staff Physician] - 3-5 Days [facility] [place] [Outside] - 3-5 Days [facility] [Outside] - 3-5 Days Forms: Work/School Release Form(ED)
== END 2018-08-12 07:47 | disposition home or self-care (01) ==
LOC: ED 13:50
DX: J18.9 Pneumonia, unspecified organism (principal); I10 Essential (primary) hypertension; G43.909 Migraine, unspecified, not intractable, without status migrainosus; G47.00 Insomnia, unspecified; Z98.51 Tubal ligation status
CPT/HCPCS: 36415; 71046; 80048; 85027; 93005; 93010; 99284

== ENCOUNTER 2019-02-18 02:56 | Emergency (ER) | payer MEDICAID ==
[2019-02-18] MEDS ORDERED: ASPIRIN 325 MG TAB PO ONE (03:00)
[2019-02-18 03:59] LABS: Basophils % (Auto) 0.3 % (0.0-1.8); Eosinophils # (Auto) 0.2 K/mm3 (0.0-0.4); Hematocrit 36.8 % (30.3-42.9); Hemoglobin 12.9 gm/dl (10.1-14.3); Lymphocytes # (Auto) 3.1 K/mm3 (1.2-5.4); Lymphocytes % (Auto) 46.1 % (13.4-35.0); Mean Corpuscular HGB Conc 35 % (30-34); Mean Corpuscular Volume 91 fl (79-97); Monocytes # (Auto) 0.5 K/mm3 (0.0-0.8); Monocytes % (Auto) 6.8 % (0.0-7.3); Platelet Count 289 K/mm3 (140-440); Red Blood Count 4.03 M/mm3 (3.65-5.03); Red Cell Distribution Width 15.4 % (13.2-15.2)
--- NOTE | 2019-02-18 03:59 | XRay Report ---
CHEST 1 VIEW 02/18/2019 3:23 AM INDICATION / CLINICAL INFORMATION: Chest Pain. COMPARISON: 08/11/18 FINDINGS: SUPPORT DEVICES: None. HEART / MEDIASTINUM: No significant abnormality. LUNGS / PLEURA: No significant pulmonary or pleural abnormality. Small calcified granuloma in the rig ht midlung is unchanged. No pneumothorax. ADDITIONAL FINDINGS: No significant additional findings. IMPRESSION: 1. No acute findings. Signer Name: Franky Sweeney MD Signed: 02/18/2019 3:54 AM Workstation Name: [id number]
[2019-02-18] MEDS ORDERED: diazePAM 5 MG TAB PO ONE (04:00)
[2019-02-18 04:11] LABS: BUN/Creatinine Ratio 10; Blood Urea Nitrogen 9 mg/dL (7-17); Hemolysis Index 2
--- NOTE | 2019-02-18 07:46 | Emergency Department Report ---
ED Chest Pain HPI - General Chief Complaint: Chest Pain Stated Complaint: CHEST PAIN Time Seen by Provider: 02/18/19 06:05 Source: patient Mode of arrival: Wheelchair Limitations: No Limitations - History of Present Illness Initial Comments: 43-year-old female with a past medical history of obesity, hypertension, anxiety, and depression presents to the Hospital complains of sternal chest pain times one month and feeling anxious since her mother at 1 AM. Patient is tearful upon my initial contact and receive by mouth Valium prior to my evaluation. Patient states she has had sternal sharp pain rated 10/10 in intensity 1 month. Pain is worse with movement, palpation, and deep inspiration. Shortness of breath secondary to pain reported. Patient complains productive cough without fever, calf tenderness, leg edema, recent travel, h istory of PE/DVT, or control pill use. Patient states she takes a medication that starts with BUS for anxiety but it does not help. PMD affiliated with [facility] Severity scale (0 -10): 10 - Related Data Previous Rx's Medication Instructions Recorded Last Taken Type Fluticasone [Flonase] 1 spray NS QDAY #1 bottle 06/21/14 07/14/14 Rx DOXYCYCLINE Hyclate [Vibramycin 100 mg PO Q12HR #20 capsule 12/17/14 Unknown Rx CAP] metroNIDAZOLE [Flagyl TAB] 500 mg PO Q12HR #20 tab 12/17/14 Unknown Rx amLODIPine [Norvasc] 10 mg PO DAILY #14 tab 06/13/16 Unknown Rx HYDROcodone/APAP 7.5-325 [[place] 1 each PO Q6HR PRN #20 tablet 11/08/16 Unknown Rx 7.5/325] Ibuprofen [Motrin] 800 mg PO Q8HR PRN #30 tablet 11/08/16 Unknown Rx Ondansetron [Zofran Odt] 4 mg PO Q8HR PRN #20 tab.rapdis 11/08/16 Unknown Rx Butalb/Acetamin/Caff 50-325-40 1 tab PO Q6HR PRN #10 tab 06/15/18 Unknown Rx [Fioricet] Naproxen [Naprosyn] 500 mg PO BID #20 tablet 06/15/18 Unknown Rx Benzonatate [Tessalon Perle] 100 mg PO Q8H PRN #20 capsule 08/11/18 Unknown Rx Ibuprofen [Motrin] 600 mg PO Q8H PRN #20 tablet 08/11/18 Unknown Rx Prednisone [predniSONE 10 mg 10 mg PO .TAPER #1 tab.ds.pk 08/11/18 Unknown Rx (6-Day Pack, 21 Tabs)] levoFLOXacin [Levaquin TAB] 750 mg PO QDAY #7 tablet 08/11/18 Unknown Rx Ibuprofen [Motrin] 800 mg PO Q8HR PRN #30 tablet 02/18/19 Unknown Rx diazePAM TAB [Valium] 5 mg PO BID PRN #6 tablet 02/18/19 Unknown Rx Allergies Allergy/AdvReac Type Severity Reaction Status Date / Time No Known Allergies Allergy Verified 06/14/18 20:07 Heart Score - HEART Score History: Slightly suspicious EKG: Normal Age: < 45 Risk factors: 1-2 risk factors Troponin: < normal limit HEART Score: 1 ED Review of Systems ROS: Stated complaint: CHEST PAIN Other details as noted in HPI Comment: All other systems reviewed and negative ED Past Medical Hx - Past Medical History Previous Medical History?: Yes Hx Hypertension: Yes Hx Congestive Heart Failure: No Hx Diabetes: No Hx Deep Vein Thrombosis: No Hx Renal Disease: No Hx Sickle Cell Disease: No Hx Headaches / Migraines: Yes Hx Seizures: No Hx Psychiatric Treatment: Yes (ANXIETY / DEPRESSION) Hx Asthma: No Hx COPD: No Hx HIV: No Additional medical history: INSOMNIA, vertigo - Surgical History Past Surgical History?: Yes Additional Surgical History: x2. NASAL SURGERY. TUBAL LIGATION - Social History Smoking Status: Never Smoker Substance Use Type: Marijuana - Medications Home Medications: Home Medications Medication Instructions Recorded Confirmed Last Taken Type Fluticasone [Flonase] 1 spray NS QDAY #1 bottle 06/21/14 11/08/16 07/14/14 Rx DOXYCYCLINE Hyclate [Vibramycin 100 mg PO Q12HR #20 capsule 12/17/14 11/08/16 Unknown Rx CAP] metroNIDAZOLE [Flagyl TAB] 500 mg PO Q12HR #20 tab 12/17/14 11/08/16 Unknown Rx amLODIPine [Norvasc] 10 mg PO DAILY #14 tab 06/13/16 11/08/16 Unknown Rx HYDROcodone/APAP 7.5-325 [[place] 1 each PO Q6HR PRN #20 tablet 11/08/16 Unknown Rx 7.5/325] Ibuprofen [Motrin] 800 mg PO Q8HR PRN #30 tablet 11/08/16 Unknown Rx Ondansetron [Zofran Odt] 4 mg PO Q8HR PRN #20 tab.rapdis 11/08/16 Unknown Rx Butalb/Acetamin/Caff 50-325-40 1 tab PO Q6HR PRN #10 tab 06/15/18 Unknown Rx [Fioricet] Naproxen [Naprosyn] 500 mg PO BID #20 tablet 06/15/18 Unknown Rx Benzonatate [Tessalon Perle] 100 mg PO Q8H PRN #20 capsule 08/11/18 Unknown Rx Ibuprofen [Motrin] 600 mg PO Q8H PRN #20 tablet 08/11/18 Unknown Rx Prednisone [predniSONE 10 mg 10 mg PO .TAPER #1 tab.ds.pk 08/11/18 Unknown Rx (6-Day Pack, 21 Tabs)] levoFLOXacin [Levaquin TAB] 750 mg PO QDAY #7 tablet 08/11/18 Unknown Rx Ibuprofen [Motrin] 800 mg PO Q8HR PRN #30 tablet 02/18/19 Unknown Rx diazePAM TAB [Valium] 5 mg PO BID PRN #6 tablet 02/18/19 Unknown Rx ED Physical Exam - General Limitations: No Limitations - Other Other exam information: Gen.: No acute distress Head: Atraumatic Eyes: Normal appearance ENT: Moist mucous membranes Neck: Normal appearance, no posterior midline tenderness, no meningismus Chest: Clear to auscultation bilaterally Cardiovascular: Mild tachycardia, regular rhythm, reproducible midsternal chest wall tenderness Abdomen: Normal appearance, soft, nontender, no rebound or guarding, normal bowel sounds Back: Normal appearance, nontender Extremity: Full range of motion, normal appearance, no calf tenderness or leg edema Neuro: Alert, clear speech, no focal motor or sensory deficit Psychiatric: Crying Skin: No rash ED Course Vital Signs 02/18/19 02/18/19 02/18/19 03:02 03:32 03:36 Temperature 98.4 F Pulse Rate 136 H 110 H 116 H Respiratory 24 15 23 Rate Blood Pressure 134/82 Blood Pressure 159/63 [Right] O2 Sat by Pulse 98 100 Oximetry 02/18/19 02/18/19 02/18/19 03:40 03:45 03:50 Temperature Pulse Rate 119 H 122 H 116 H Respiratory 13 14 11 L Rate Blood Pressure 134/82 148/97 148/97 Blood Pressure [Right] O2 Sat by Pulse 100 100 100 Oximetry 02/18/19 02/18/19 02/18/19 03:58 04:00 04:06 Temperature Pulse Rate Respiratory 22 14 14 Rate Blood Pressure 148/97 125/83 125/83 Blood Pressure [Right] O2 Sat by Pulse 99 100 100 Oximetry 02/18/19 02/18/19 02/18/19 04:10 04:15 04:20 Temperature Pulse Rate 105 H Respiratory 23 19 13 Rate Blood Pressure 125/83 121/79 121/79 Blood Pressure [Right] O2 Sat by Pulse 100 100 100 Oximetry 02/18/19 02/18/19 02/18/19 04:30 05:00 07:00 Temperature Pulse Rate 106 H 102 H 90 Respiratory 14 13 11 L Rate Blood Pressure 126/76 124/82 119/66 Blood Pressure [Right] O2 Sat by Pulse 100 100 98 Oximetry 02/18/19 02/18/19 07:30 08:00 Temperature Pulse Rate 84 98 H Respiratory 16 16 Rate Blood Pressure 102/56 111/63 Blood Pressure [Right] O2 Sat by Pulse 98 Oximetry ALEKSEY score - Aleksey Score Age > 65: (0) No Aspirin use within the Past 7 Days: (0) No 3 or more CAD Risk Factors: (0) No 2 or more Angina events in past 24 hrs: (0) No Known CAD with more than 50% Stenosis: (0) No Elevated Cardiac Markers: (0) No ST Deviation Greater than 0.5mm: (0) No ALEKSEY Score: 0 ED Medical Decision Making - Lab Data Result diagrams: 02/18/19 03:35 02/18/19 03:35 Lab Results 02/18/19 02/18/19 02/18/19 Range/Units 03:35 03:35 05:30 WBC 6.7 (4.5-11.0) K/mm3 RBC 4.03 (3.65-5.03) M/mm3 Hgb 12.9 (10.1-14.3) gm/dl Hct 36.8 (30.3-42.9) % MCV 91 (79-97) fl MCH 32 (28-32) pg MCHC 35 H (30-34) % RDW 15.4 H (13.2-15.2) % Plt Count 289 (140-440) K/mm3 Lymph % (Auto) 46.1 H (13.4-35.0) % [place] % (Auto) 6.8 (0.0-7.3) % Eos % (Auto) 3.0 (0.0-4.3) % Baso % (Auto) 0.3 (0.0-1.8) % Lymph # 3.1 (1.2-5.4) K/mm3 [place] # 0.5 (0.0-0.8) K/mm3 Eos # 0.2 (0.0-0.4) K/mm3 Baso # 0.0 (0.0-0.1) K/mm3 Seg Neutrophils % 43.8 (40.0-70.0) % Seg Neutrophils # 2.9 (1.8-7.7) K/mm3 D-Dimer (0-234) ng/mlDDU Sodium 142 (137-145) mmol/L Potassium 3.6 (3.6-5.0) mmol/L Chloride 104.6 (98-107) mmol/L Carbon Dioxide 25 (22-30) mmol/L Anion Gap 16 mmol/L BUN 9 (7-17) mg/dL Creatinine 0.9 (0.7-1.2) mg/dL Estimated GFR > 60 ml/min BUN/Creatinine Ratio 10 % Glucose 163 H (65-100) mg/dL Calcium 9.0 (8.4-10.2) mg/dL Troponin T < 0.010 < 0.010 (0.00-0.029) ng/mL 02/18/19 02/18/19 Range/Units 07:03 08:19 WBC (4.5-11.0) K/mm3 RBC (3.65-5.03) M/mm3 Hgb (10.1-14.3) gm/dl Hct (30.3-42.9) % MCV (79-97) fl MCH (28-32) pg MCHC (30-34) % RDW (13.2-15.2) % Plt Count (140-440) K/mm3 Lymph % (Auto) (13.4-35.0) % [place] % (Auto) (0.0-7.3) % Eos % (Auto) (0.0-4.3) % Baso % (Auto) (0.0-1.8) % Lymph # (1.2-5.4) K/mm3 [place] # (0.0-0.8) K/mm3 Eos # (0.0-0.4) K/mm3 Baso # (0.0-0.1) K/mm3 Seg Neutrophils % (40.0-70.0) % Seg Neutrophils # (1.8-7.7) K/mm3 D-Dimer 308.27 H (0-234) ng/mlDDU Sodium (137-145) mmol/L Potassium (3.6-5.0) mmol/L Chloride (98-107) mmol/L Carbon Dioxide (22-30) mmol/L Anion Gap mmol/L BUN (7-17) mg/dL Creatinine (0.7-1.2) mg/dL Estimated GFR ml/min BUN/Creatinine Ratio % Glucose (65-100) mg/dL Calcium (8.4-10.2) mg/dL Troponin T < 0.010 (0.00-0.029) ng/mL - EKG Data -: EKG Interpreted by [facility] EKG shows normal: sinus rhythm, ST-T waves (no ST elevation CT) Rate: tachycardia - EKG Data When compared to previous EKG there are: no significant change - Radiology Data Radiology results: report reviewed CHEST 1 VIEW 02/18/2019 3:23 AM INDICATION / CLINICAL INFORMATION: Chest Pain. COMPARISON: 08/11/18 FINDINGS: SUPPORT DEVICES: None. HEART / MEDIASTINUM: No significant abnormality. LUNGS / PLEURA: No significant pulmonary or pleural abnormality. Small calcified granuloma in the right midlung is unchanged. No pneumothorax. ADDITIONAL FINDINGS: No significant additional findings. IMPRESSION: 1. No acute findings. CTA CHEST WITH CONTRAST INDICATION : Chest pain for one day. TECHNIQUE: Axial imaging performed through the chest, with contrast bolus timing set to maximize opacification of the pulmonary arteries. Sagittal and coronal reformatted images. 3-plane MIP reformatted images were obtained. All CT scans at this location are performed using CT dose reduction for ALARA by means of automated exposure control. 100 mL of intravenous contrast administered. COMPARISON: AP chest performed the same day FINDINGS: Bolus: Contrast bolus timing is adequate. Resolution of the images are somewhat limited secondary to body habitus. PTE: No filling defect is present to suggest PTE. Mediastinum: Heart and great vessels appear normal. No pathologic mediastinal adenopathy. Lungs: Lungs are clear. 1 cm calcified granuloma is noted in the superior segment of the right lower lobe. No pleural effusion or pneumothorax. Bones: Intact. There is mild to moderate anterior spurring at T2-3. Upper abdomen: Limited imaging of the upper abdomen demonstrates moderate to severe fatty infiltration throughout the visualized liver. IMPRESSION: Slightly limited exam but no pulmonary embolus is identified. Calcified granuloma in the right lower lobe. Fatty infiltration of the liver. - Medical Decision Making She presents with sternal chest pain is reproducible times one months for costochondritis. Although patient has a mild elevation and D dimer CT angiogram is negative for pulmonary embolism. Patient presents here with a grief reaction after her mother this morning. Pt was treated with Valium for anxiety and Toradol for headache. She also received aspirin as per chest pain protocol. Hr improved with ed tx also pt crying less. Patient be discharged home with pain med and benzos to take when necessary and follow-up with her primary care doctor recommended. - Differential Diagnosis costochondritis, PE, grief reaction, anxiety, pneumonia Critical Care Time: No Critical care attestation.: If time is entered above; I have spent that time in minutes in the direct care of this critically ill patient, excluding procedure time. ED Disposition Clinical Impression: Grief reaction, Costochondritis Disposition: - TO HOME OR SELFCARE Is pt being admited?: No Does the pt Need Aspirin: No Condition: Stable Instructions: Grief and Loss (ED), Costochondritis (ED) Additional Instructions: Take the medication as prescribed. Follow-up with your doctor or with the doctor/clinic provided. Return if symptoms worsen as indicated by your discharge instructions. Prescriptions: Ibuprofen [Motrin] 800 mg PO Q8HR PRN #30 tablet PRN Reason: Pain , Severe (7-10) diazePAM TAB [Valium] 5 mg PO BID PRN #6 tablet PRN Reason: Anxiety Referrals: RHETT ERIC MD [Primary Care Provider] - 3-5 Days [facility] [Outside] - 3-5 Days Time of Disposition: 09:24
[2019-02-18 09:14] VITALS: BP 111/63
[2019-02-18] MEDS ORDERED: KETOROLAC 30 MG/1 ML INJ IV ONE (09:17)
--- NOTE | 2019-02-18 09:17 | Cat Scan Report ---
CTA CHEST WITH CONTRAST INDICATION : Chest pain for one day. TECHNIQUE: Axial imaging performed through the chest, with contrast bolus timing set to maximize opa cification of the pulmonary arteries. Sagittal and coronal reformatted images. 3-plane MIP reformatte d images were obtained. All CT scans at this location are performed using CT dose reduction for ALAR A by means of automated exposure control. 100 mL of intravenous contrast administered. COMPARISON: AP chest performed the same day FINDINGS: Bolus: Contrast bolus timing is adequate. Resolution of the images are somewhat limited secondary to body habitus. PTE: No filling defect is present to suggest PTE. Mediastinum: Heart and great vessels appear normal. No pathologic mediastinal adenopathy. Lungs: Lungs are clear. 1 cm calcified granuloma is noted in the superior segment of the right lower lobe. No pleural effusion or pneumothorax. Bones: Intact. There is mild to moderate anterior spurring at T2-3. Upper abdomen: Limited imaging of the upper abdomen demonstrates moderate to severe fatty infiltrati on throughout the visualized liver. IMPRESSION: Slightly limited exam but no pulmonary embolus is identified. Calcified granuloma in the right lower lobe. Fatty infiltration of the liver. Signer Name: Daniel Coles Jr, MD Signed: 02/18/2019 9:13 AM Workstation Name: [id number]
== END 2019-02-18 09:40 | disposition home or self-care (01) ==
LOC: ED 02:56
DX: M94.0 Chondrocostal junction syndrome [Tietze] (principal); I10 Essential (primary) hypertension; F43.23 Adjustment disorder with mixed anxiety and depressed mood; E66.9 Obesity, unspecified; Z68.38 Body mass index [BMI] 38.0-38.9, adult; G43.909 Migraine, unspecified, not intractable, without status migrainosus; G47.00 Insomnia, unspecified; F12.10 Cannabis abuse, uncomplicated; Z98.51 Tubal ligation status; Z79.899 Other long term (current) drug therapy; Z79.1 Long term (current) use of non-steroidal anti-inflammatories (NSAID); Z98.890 Other specified postprocedural states
CPT/HCPCS: 36415; 71045; 71275; 80048; 84484; 85025; 85379; 93005; 93010; 96374; 99285; J1885; Q9967

== ENCOUNTER 2020-06-28 11:39 | Emergency (ER) | payer MEDICAID ==
[2020-06-28 11:45] VITALS: BP 135/97
[2020-06-28] MEDS ORDERED: HYDROcodone/ACETAMINOPHEN 5-325 MG TAB PO ONE (11:49)
[2020-06-28] MEDS ORDERED: ONDANSETRON 4 MG ODT TAB PO ONE (11:49)
--- NOTE | 2020-06-28 11:59 | Emergency Department Report ---
ED Abdominal Pain HPI - General Chief Complaint: Abdominal Pain Stated Complaint: ABD PAIN/LT SIDE PAIN Time Seen by Provider: 06/28/20 11:45 Source: patient Mode of arrival: Ambulatory Limitations: No Limitations - History of Present Illness Initial Comments: pt is a 45 yo female who presents to the ED with c/o left flank pain that radiates to the left lower abdomen that began 3 days ago. she has associated dysuria, urinary frequency, urinary urgency. she has associated nausea. she states she was going to see her PCP today but the pain increased so therefore she reported to the ER. she denies any vomiting, diarrhea, abnormal vaginal discharge. she states in April 2020 she was diagnosed with nephrolithiasis and UTI and completed a course of antibiotics. PMHx HTN and HLD. no allergies to meds. LNMP three days ago. - Related Data Previous Rx's Medication Instructions Recorded Last Taken Type Fluticasone [Flonase] 1 spray NS QDAY #1 bottle 06/21/14 07/14/14 Rx DOXYCYCLINE Hyclate [Vibramycin 100 mg PO Q12HR #20 capsule 12/17/14 Unknown Rx CAP] metroNIDAZOLE [Flagyl TAB] 500 mg PO Q12HR #20 tab 12/17/14 Unknown Rx amLODIPine 10 mg PO DAILY #14 tab 06/13/16 Unknown Rx HYDROcodone/APAP 7.5-325 [[place] 1 each PO Q6HR PRN #20 tablet 11/08/16 Unknown Rx 7.5/325] Ibuprofen [Motrin] 800 mg PO Q8HR PRN #30 tablet 11/08/16 Unknown Rx Ondansetron [Zofran Odt] 4 mg PO Q8HR PRN #20 tab.rapdis 11/08/16 Unknown Rx Butalb/Acetamin/Caff 50-325-40 1 tab PO Q6HR PRN #10 tab 06/15/18 Unknown Rx [Fioricet] Naproxen [Naprosyn] 500 mg PO BID #20 tablet 06/15/18 Unknown Rx Benzonatate [Tessalon Perle] 100 mg PO Q8H PRN #20 capsule 08/11/18 Unknown Rx Ibuprofen [Motrin] 600 mg PO Q8H PRN #20 tablet 08/11/18 Unknown Rx Prednisone [predniSONE 10 mg 10 mg PO .TAPER #1 tab.ds.pk 08/11/18 Unknown Rx (6-Day Pack, 21 Tabs)] levoFLOXacin [Levaquin TAB] 750 mg PO QDAY #7 tablet 08/11/18 Unknown Rx Ibuprofen [Motrin] 800 mg PO Q8HR PRN #30 tablet 02/18/19 Unknown Rx diazePAM TAB [Valium] 5 mg PO BID PRN #6 tablet 02/18/19 Unknown Rx Naproxen [EC-Naprosyn] 500 mg PO BID PRN #14 tablet. 06/28/20 Unknown Rx Ondansetron [Zofran Odt] 4 mg PO Q8HR PRN #10 tab.rapdis 06/28/20 Unknown Rx Phenazopyridine [Pyridium] 100 mg PO TID #9 tab 06/28/20 Unknown Rx Allergies Allergy/AdvReac Type Severity Reaction Status Date / Time No Known Allergies Allergy Verified 06/14/18 20:07 ED Review of Systems ROS: Stated complaint: ABD PAIN/LT SIDE PAIN Other details as noted in HPI Comment: All other systems reviewed and negative ED Past Medical Hx - Past Medical History Previous Medical History?: Yes Hx Hypertension: Yes Hx Congestive Heart Failure: No Hx Diabetes: No Hx Deep Vein Thrombosis: No Hx Renal Disease: No Hx Sickle Cell Disease: No Hx Headaches / Migraines: Yes Hx Seizures: No Hx Psychiatric Treatment: Yes (ANXIETY / DEPRESSION) Hx Asthma: No Hx COPD: No Hx HIV: No Additional medical history: INSOMNIA, vertigo - Surgical History Past Surgical History?: Yes Additional Surgical History: x2. NASAL SURGERY. TUBAL LIGATION - Social History Smoking Status: Never Smoker Substance Use Type: None - Medications Home Medications: Home Medications Medication Instructions Recorded Confirmed Last Taken Type Fluticasone [Flonase] 1 spray NS QDAY #1 bottle 06/21/14 11/08/16 07/14/14 Rx DOXYCYCLINE Hyclate [Vibramycin 100 mg PO Q12HR #20 capsule 12/17/14 11/08/16 Unknown Rx CAP] metroNIDAZOLE [Flagyl TAB] 500 mg PO Q12HR #20 tab 12/17/14 11/08/16 Unknown Rx amLODIPine 10 mg PO DAILY #14 tab 06/13/16 11/08/16 Unknown Rx HYDROcodone/APAP 7.5-325 [[place] 1 each PO Q6HR PRN #20 tablet 11/08/16 Unknown Rx 7.5/325] Ibuprofen [Motrin] 800 mg PO Q8HR PRN #30 tablet 11/08/16 Unknown Rx Ondansetron [Zofran Odt] 4 mg PO Q8HR PRN #20 tab.rapdis 11/08/16 Unknown Rx Butalb/Acetamin/Caff 50-325-40 1 tab PO Q6HR PRN #10 tab 06/15/18 Unknown Rx [Fioricet] Naproxen [Naprosyn] 500 mg PO BID #20 tablet 06/15/18 Unknown Rx Benzonatate [Tessalon Perle] 100 mg PO Q8H PRN #20 capsule 08/11/18 Unknown Rx Ibuprofen [Motrin] 600 mg PO Q8H PRN #20 tablet 08/11/18 Unknown Rx Prednisone [predniSONE 10 mg 10 mg PO .TAPER #1 tab.ds.pk 08/11/18 Unknown Rx (6-Day Pack, 21 Tabs)] levoFLOXacin [Levaquin TAB] 750 mg PO QDAY #7 tablet 08/11/18 Unknown Rx Ibuprofen [Motrin] 800 mg PO Q8HR PRN #30 tablet 02/18/19 Unknown Rx diazePAM TAB [Valium] 5 mg PO BID PRN #6 tablet 02/18/19 Unknown Rx Naproxen [EC-Naprosyn] 500 mg PO BID PRN #14 tablet.dr 06/28/20 Unknown Rx Ondansetron [Zofran Odt] 4 mg PO Q8HR PRN #10 tab.rapdis 06/28/20 Unknown Rx Phenazopyridine [Pyridium] 100 mg PO TID #9 tab 06/28/20 Unknown Rx ED Physical Exam - General Limitations: No Limitations General appearance: alert, in no apparent distress - Head Head exam: Present: atraumatic, normocephalic - Eye Eye exam: Present: normal appearance - ENT ENT exam: Present: mucous membranes moist - Respiratory Respiratory exam: Present: normal lung sounds bilaterally. Absent: respiratory distress, wheezes, rales, rhonchi, stridor, chest wall tenderness, accessory muscle use, decreased breath sounds, prolonged expiratory - Cardiovascular Cardiovascular Exam: Present: regular rate, normal rhythm, normal heart sounds. Absent: systolic murmur, diastolic murmur, rubs, gallop - GI/Abdominal GI/Abdominal exam: Present: soft, normal bowel sounds. Absent: distended, tenderness, guarding, rebound, rigid - Back Exam Back exam: Present: CVA tenderness (L). Absent: CVA tenderness (R) - Neurological Exam Neurological exam: Present: alert, oriented X3 - Psychiatric Psychiatric exam: Present: normal affect, normal mood - Skin Skin exam: Present: warm, dry, intact ED Course Vital Signs 06/28/20 11:44 Temperature 98.9 F Pulse Rate 86 Respiratory 20 Rate Blood Pressure 135/97 O2 Sat by Pulse 98 Oximetry ED Medical Decision Making - Lab Data Result diagrams: 06/28/20 12:08 06/28/20 12:08 Lab Results 06/28/20 06/28/20 06/28/20 Range/Units 12:08 12:08 12:08 WBC 4.8 (4.5-11.0) K/mm3 RBC 4.35 (3.65-5.03) M/mm3 Hgb 13.4 (10.1-14.3) gm/dl Hct 40.5 (30.3-42.9) % MCV 93 (79-97) fl MCH 31 (28-32) pg MCHC 33 (30-34) % RDW 14.7 (13.2-15.2) % Plt Count 276 (140-440) K/mm3 Lymph % (Auto) 55.9 H (13.4-35.0) % [place] % (Auto) 6.0 (0.0-7.3) % Eos % (Auto) 4.1 (0.0-4.3) % Baso % (Auto) 1.6 (0.0-1.8) % Lymph # (Auto) 2.6 (1.2-5.4) K/mm3 [place] # (Auto) 0.3 (0.0-0.8) K/mm3 Eos # (Auto) 0.2 (0.0-0.4) K/mm3 Baso # (Auto) 0.1 (0.0-0.1) K/mm3 Add Manual Diff Complete Total Counted 100 Seg Neutrophils % 32.4 L (40.0-70.0) % Seg Neuts % (Manual) 32.0 L (40.0-70.0) % Lymphocytes % (Manual) 58.0 H (13.4-35.0) % Monocytes % (Manual) 6.0 (0.0-7.3) % Eosinophils % (Manual) 4.0 (0.0-4.3) % Nucleated RBC % Not Reportable Seg Neutrophils # 1.5 L (1.8-7.7) K/mm3 Seg Neutrophils # Man 1.5 L (1.8-7.7) K/mm3 Band Neutrophils # 0.0 K/mm3 Lymphocytes # (Manual) 2.8 (1.2-5.4) K/mm3 Abs React Lymphs (Man) 0.0 K/mm3 Monocytes # (Manual) 0.3 (0.0-0.8) K/mm3 Eosinophils # (Manual) 0.2 (0.0-0.4) K/mm3 Basophils # (Manual) 0.0 (0.0-0.1) K/mm3 Metamyelocytes # 0.0 K/mm3 Myelocytes # 0.0 K/mm3 Promyelocytes # 0.0 K/mm3 Blast Cells # 0.0 K/mm3 WBC Morphology Not Reportable Hypersegmented Neuts Not Reportable Hyposegmented Neuts Not Reportable Hypogranular Neuts Not Reportable Smudge Cells Not Reportable Toxic Granulation Not Reportable Toxic Vacuolation Not Reportable Dohle Bodies Not Reportable Pelger-Huet Anomaly Not Reportable Emely Rods Not Reportable Platelet Estimate Consistent w auto Clumped Platelets Not Reportable Plt Clumps, EDTA Not Reportable Large Platelets Not Reportable Giant Platelets Not Reportable Platelet Satelliting Not Reportable Plt Morphology Comment Not Reportable RBC Morphology Normal Dimorphic RBCs Not Reportable Polychromasia Not Reportable Hypochromasia Not Reportable Poikilocytosis Not Reportable Anisocytosis Not Reportable Microcytosis Not Reportable Macrocytosis Not Reportable Spherocytes Not Reportable Pappenheimer Bodies Not Reportable Sickle Cells Not Reportable Target Cells Not Reportable Tear Drop Cells Not Reportable Ovalocytes Not Reportable Helmet Cells Not Reportable [place]adium Bodies Not Reportable [place] Rings Not Reportable [place] Cells Not Reportable Bite Cells Not Reportable Crenated Cell Not Reportable Elliptocytes Not Reportable Acanthocytes (Spur) Not Reportable Rouleaux Not Reportable Hemoglobin C Crystals Not Reportable Schistocytes Not Reportable Malaria parasites Not Reportable Pedro Bodies Not Reportable Hem Pathologist Commnt No Sodium 137 (137-145) mmol/L Potassium 3.8 (3.6-5.0) mmol/L Chloride 100.5 (98-107) mmol/L Carbon Dioxide 28 (22-30) mmol/L Anion Gap 12 mmol/L BUN 8 (7-17) mg/dL Creatinine 0.8 (0.6-1.2) mg/dL Estimated GFR > 60 ml/min BUN/Creatinine Ratio 10 % Glucose 122 H (65-100) mg/dL Calcium 9.2 (8.4-10.2) mg/dL Total Bilirubin 0.30 (0.1-1.2) mg/dL AST 27 (5-40) units/L ALT 39 (7-56) units/L Alkaline Phosphatase 59 (35-129) units/L Total Protein 7.8 (6.3-8.2) g/dL Albumin 4.7 (3.9-5) g/dL Albumin/Globulin Ratio 1.5 % HCG, Qual Negative (Negative) Urine Color (Yellow) Urine Turbidity (Clear) Urine pH (5.0-7.0) Ur Specific [place] (1.003-1.030) Urine Protein (Negative) mg/dL Urine Glucose (UA) (Negative) mg/dL Urine Ketones (Negative) mg/dL Urine Blood (Negative) Urine Nitrite (Negative) Urine Bilirubin (Negative) Urine Urobilinogen (<2.0) mg/dL Ur Leukocyte Esterase (Negative) Urine WBC (Auto) (0.0-6.0) /HPF Urine RBC (Auto) (0.0-6.0) /HPF U Epithel Cells (Auto) (0-13.0) /HPF Urine Mucus /HPF 06/28/20 Range/Units 13:12 WBC (4.5-11.0) K/mm3 RBC (3.65-5.03) M/mm3 Hgb (10.1-14.3) gm/dl Hct (30.3-42.9) % MCV (79-97) fl MCH (28-32) pg MCHC (30-34) % RDW (13.2-15.2) % Plt Count (140-440) K/mm3 Lymph % (Auto) (13.4-35.0) % [place] % (Auto) (0.0-7.3) % Eos % (Auto) (0.0-4.3) % Baso % (Auto) (0.0-1.8) % Lymph # (Auto) (1.2-5.4) K/mm3 [place] # (Auto) (0.0-0.8) K/mm3 Eos # (Auto) (0.0-0.4) K/mm3 Baso # (Auto) (0.0-0.1) K/mm3 Add Manual Diff Total Counted Seg Neutrophils % (40.0-70.0) % Seg Neuts % (Manual) (40.0-70.0) % Lymphocytes % (Manual) (13.4-35.0) % Monocytes % (Manual) (0.0-7.3) % Eosinophils % (Manual) (0.0-4.3) % Nucleated RBC % Seg Neutrophils # (1.8-7.7) K/mm3 Seg Neutrophils # Man (1.8-7.7) K/mm3 Band Neutrophils # K/mm3 Lymphocytes # (Manual) (1.2-5.4) K/mm3 Abs React Lymphs (Man) K/mm3 Monocytes # (Manual) (0.0-0.8) K/mm3 Eosinophils # (Manual) (0.0-0.4) K/mm3 Basophils # (Manual) (0.0-0.1) K/mm3 Metamyelocytes # K/mm3 Myelocytes # K/mm3 Promyelocytes # K/mm3 Blast Cells # K/mm3 WBC Morphology Hypersegmented Neuts Hyposegmented Neuts Hypogranular Neuts Smudge Cells Toxic Granulation Toxic Vacuolation Dohle Bodies Pelger-Huet Anomaly Emely Rods Platelet Estimate Clumped Platelets Plt Clumps, EDTA Large Platelets Giant Platelets Platelet Satelliting Plt Morphology Comment RBC Morphology Dimorphic RBCs Polychromasia Hypochromasia Poikilocytosis Anisocytosis Microcytosis Macrocytosis Spherocytes Pappenheimer Bodies Sickle Cells Target Cells Tear Drop Cells Ovalocytes Helmet Cells [place]-Radium Bodies [place] Rings Christy Cells Bite Cells Crenated Cell Elliptocytes Acanthocytes (Spur) Rouleaux Hemoglobin C Crystals Schistocytes Malaria parasites Pedro Bodies Hem Pathologist Commnt Sodium (137-145) mmol/L Potassium (3.6-5.0) mmol/L Chloride (98-107) mmol/L Carbon Dioxide (22-30) mmol/L Anion Gap mmol/L BUN (7-17) mg/dL Creatinine (0.6-1.2) mg/dL Estimated GFR ml/min BUN/Creatinine Ratio % Glucose (65-100) mg/dL Calcium (8.4-10.2) mg/dL Total Bilirubin (0.1-1.2) mg/dL AST (5-40) units/L ALT (7-56) units/L Alkaline Phosphatase (35-129) units/L Total Protein (6.3-8.2) g/dL Albumin (3.9-5) g/dL Albumin/Globulin Ratio % HCG, Qual (Negative) Urine Color Yellow (Yellow) Urine Turbidity Slightly-cloudy (Clear) Urine pH 5.0 (5.0-7.0) Ur Specific [place] 1.020 (1.003-1.030) Urine Protein <15 mg/dl (Negative) mg/dL Urine Glucose (UA) Neg (Negative) mg/dL Urine Ketones Neg (Negative) mg/dL Urine Blood Sm (Negative) Urine Nitrite Neg (Negative) Urine Bilirubin Neg (Negative) Urine Urobilinogen < 2.0 (<2.0) mg/dL Ur Leukocyte Esterase Neg (Negative) Urine WBC (Auto) 1.0 (0.0-6.0) /HPF Urine RBC (Auto) 5.0 (0.0-6.0) /HPF U Epithel Cells (Auto) 6.0 (0-13.0) /HPF Urine Mucus Few /HPF - Radiology Data Radiology results: report reviewed CT abdomen pelvis without contrast No acute intra-abdominal disease Hepatomegaly with moderate diffuse fatty infiltration - Medical Decision Making pt is a 45 yo female who presents to the ED with c/o left flank pain that radiates to the left lower abdomen that began 3 days ago. she has associated dysuria, urinary frequency, urinary urgency. she has associated nausea. she states she was going to see her PCP today but the pain increased so therefore she reported to the ER. she denies any vomiting, diarrhea, abnormal vaginal discharge. she states in April 2020 she was diagnosed with nephrolithiasis and UTI and completed a course of antibiotics. PMHx HTN and HLD. no allergies to meds. LNMP three days ago. Vitals are normal. Labs are normal. UA without ev idence of UTI. On exam patient has left CVA tenderness. CT abdomen pelvis without contrast No acute intra-abdominal disease, Hepatomegaly with moderate diffuse fatty infiltration. Patient given medications while in the ED and symptoms improved. Discussed all results with patient. Patient be referred to primary care doctor and urologist. Patient given prescription for Pyridium, naproxen, Zofran. Advised patient please take medication as prescribed. increase your water intake. follow up with a primary care doctor. follow up with a urologist. return to the emergency room for any new or worsening symptoms. Critical care attestation.: If time is entered above; I have spent that time in minutes in the direct care of this critically ill patient, excluding procedure time. ED Disposition Clinical Impression: Left flank pain, Dysuria Disposition: TO HOME OR SELFCARE Is pt being admited?: No Does the pt Need Aspirin: No Condition: Stable Instructions: Flank Pain, Adult, Abdominal Pain (ED) Additional Instructions: please take medication as prescribed. increase your water intake. follow up with a primary care doctor. follow up with a urologist. return to the emergency room for any new or worsening symptoms. Prescriptions: Naproxen [EC-Naprosyn] 500 mg PO BID PRN #14 tablet.dr PRN Reason: pain Phenazopyridine [Pyridium] 100 mg PO TID #9 tab Ondansetron [Zofran Odt] 4 mg PO Q8HR PRN #10 tab.rapdis PRN Reason: nausea/vomiting Referrals: MITCH LEUNG MD [Primary Care Provider] - 2-3 Days HEVER KAN MD [Staff Physician] - 2-3 Days Time of Disposition: 14:14 Print Language: GAMBIAN
[2020-06-28 12:59] LABS: Alanine Aminotransferase 39 units/L (7-56); Albumin 4.7 g/dL (3.9-5); BUN/Creatinine Ratio 10; Blood Urea Nitrogen 8 mg/dL (7-17); Calcium 9.2 mg/dL (8.4-10.2); Hemolysis Index 15
[2020-06-28 13:12] LABS: Hemoglobin 13.4 gm/dl (10.1-14.3); Mean Corpuscular Volume 93 fl (79-97)
[2020-06-28 13:13] LABS: Red Blood Count 4.35 M/mm3 (3.65-5.03)
[2020-06-28 13:14] LABS: Hematocrit 40.5 % (30.3-42.9); Mean Corpuscular HGB Conc 33 % (30-34); Platelet Count 276 K/mm3 (140-440); Red Cell Distribution Width 14.7 % (13.2-15.2)
[2020-06-28 13:16] LABS: Basophils # (Auto) 0.1 K/mm3 (0.0-0.1); Basophils % (Auto) 1.6 % (0.0-1.8); Eosinophils # (Auto) 0.2 K/mm3 (0.0-0.4); Eosinophils % (Auto) 4.1 % (0.0-4.3); Lymphocytes # (Auto) 2.6 K/mm3 (1.2-5.4); Lymphocytes % (Auto) 55.9 % (13.4-35.0); Monocytes # (Auto) 0.3 K/mm3 (0.0-0.8)
--- NOTE | 2020-06-28 13:27 | Cat Scan Report ---
CT OF THE ABDOMEN AND PELVIS WITHOUT CONTRAST INDICATION / CLINICAL INFORMATION: Left flank pain. TECHNIQUE: All CT scans at this location are performed using CT dose reduction for ALARA by means of automated e xposure control. COMPARISON: 11/08/2016. FINDINGS: ABDOMEN: The liver measures approximately 19 cm in length and demonstrates moderate diffuse decreased density compared to the spleen without focal lesion. The gallbladder, bile ducts, pancreas, spleen, adrenal glands and kidneys are normal. There is a mode rate amount of stool throughout the colon. I see no evidence of bowel obstruction, wall thickening or free air. No adenopathy is identified. The lung bases are clear. PELVIS: The distal ureters and urinary bladder are normal. The uterus and ovaries are unremarkable. A normal appendix is present and there is no evidence of diverticulitis. No abnormal mass or fluid col lection is seen. I do not identify a hernia. No acute osseous abnormality is present. IMPRESSION: 1. No acute intra-abdominal disease. 2. Hepatomegaly with moderate diffuse fatty infiltration. Signer Name: Robert Barry MD Signed: 06/28/2020 1:23 PM Workstation Name: [id number]
[2020-06-28 13:31] LABS: Bilirubin,Urine NEG (Negative); Blood,Urine SM (Negative); Color,Urine Yellow (Yellow); Mucus,Urine FEW /HPF; Protein,Urine <15 mg/dL mg/dL (Negative); Urobilinogen,Urine < 2.0 mg/dL (<2.0)
[2020-06-28 14:19] LABS: Total Cells Counted 100
[2020-06-28 14:20] LABS: Platelet Estimate Consistent w Auto; RBC Morphology Normal
== END 2020-06-28 14:37 | disposition home or self-care (01) ==
LOC: ED 11:39
DX: R10.32 Left lower quadrant pain (principal); R30.0 Dysuria; I10 Essential (primary) hypertension; G43.909 Migraine, unspecified, not intractable, without status migrainosus; F32.9 Major depressive disorder, single episode, unspecified; Z98.51 Tubal ligation status; Z98.890 Other specified postprocedural states; Z79.1 Long term (current) use of non-steroidal anti-inflammatories (NSAID); Z79.899 Other long term (current) drug therapy
CPT/HCPCS: 36415; 74176; 80053; 81001; 84703; 85007; 85025; Q0162

== ENCOUNTER 2021-03-30 15:14 | Emergency (ER) | payer MEDICAID | END 2021-03-30 18:47 | disposition left against medical advice (07) | LOC: ED 15:14 | DX: K08.89 Other specified disorders of teeth and supporting structures (principal); Z53.21 Procedure and treatment not carried out due to patient leaving prior to being seen by health care provider ==

== ENCOUNTER 2021-06-11 13:26 | Emergency (ER) | payer MEDICAID ==
[2021-06-11 15:42] VITALS: BP 108/78
[2021-06-11] MEDS ORDERED: KETOROLAC 60 MG/2 ML INJ IM ONE (16:13)
--- NOTE | 2021-06-11 16:14 | Emergency Department Report ---
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 Patient presented to the ER complaining of right hand pain mainly to the base of the right thumb. Patient stated that pain started few days ago and is getting worse now. 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 She denied any fever or chills. She also denies any recent injury. -: days(s) Severity scale (0 -10): 9 Quality: aching, dull Consistency: constant Improves with: immobilization Worsens with: movement Associated Symptoms: denies other symptoms - Related Data Previous Rx's Medication Instructions Recorded Last Taken Type Fluticasone [Flonase] 1 spray NS QDAY #1 bottle 06/21/14 07/14/14 Rx DOXYCYCLINE Hyclate [Vibramycin 100 mg PO Q12HR #20 capsule 12/17/14 Unknown Rx CAP] metroNIDAZOLE [Flagyl TAB] 500 mg PO Q12HR #20 tab 12/17/14 Unknown Rx amLODIPine 10 mg PO DAILY #14 tab 06/13/16 Unknown Rx HYDROcodone/APAP 7.5-325 [[place] 1 each PO Q6HR PRN #20 tablet 11/08/16 Unknown Rx 7.5/325] Ibuprofen [Motrin] 800 mg PO Q8HR PRN #30 tablet 11/08/16 Unknown Rx Ondansetron [Zofran Odt] 4 mg PO Q8HR PRN #20 tab.rapdis 11/08/16 Unknown Rx Butalb/Acetamin/Caff 50-325-40 1 tab PO Q6HR PRN #10 tab 06/15/18 Unknown Rx [Fioricet] Naproxen [Naprosyn] 500 mg PO BID #20 tablet 06/15/18 Unknown Rx Benzonatate [Tessalon Perle] 100 mg PO Q8H PRN #20 capsule 08/11/18 Unknown Rx Ibuprofen [Motrin] 600 mg PO Q8H PRN #20 tablet 08/11/18 Unknown Rx Prednisone [predniSONE 10 mg 10 mg PO .TAPER #1 tab.ds.pk 08/11/18 Unknown Rx (6-Day Pack, 21 Tabs)] levoFLOXacin [Levaquin TAB] 750 mg PO QDAY #7 tablet 08/11/18 Unknown Rx Ibuprofen [Motrin] 800 mg PO Q8HR PRN #30 tablet 02/18/19 Unknown Rx diazePAM TAB [Valium] 5 mg PO BID PRN #6 tablet 02/18/19 Unknown Rx Naproxen [EC-Naprosyn] 500 mg PO BID PRN #14 tablet. 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 Other details as noted in HPI Comment: All other systems reviewed and negative Constitutional: denies: chills, fever Respiratory: denies: cough, shortness of breath Cardiovascular: denies: chest pain, palpitations Gastrointestinal: denies: abdominal pain, nausea, vomiting, diarrhea, constipation, hematemesis, melena, hematochezia Musculoskeletal: denies: back pain Neurological: denies: headache, weakness, numbness, paresthesias, confusion ED Past Medical Hx - Past Medical History Hx Hypertension: Yes Hx Congestive Heart Failure: No Hx Diabetes: No Hx Deep Vein Thrombosis: No Hx Renal Disease: No Hx Sickle Cell Disease: No Hx Headaches / Migraines: Yes Hx Seizures: No Hx Psychiatric Treatment: Yes (ANXIETY / DEPRESSION) Hx Asthma: No Hx COPD: No Hx HIV: No Additional medical history: INSOMNIA, vertigo - Surgical History Additional Surgical History: x2. NASAL SURGERY. TUBAL LIGATION - Social History Smoking Status: Never Smoker Substance Use Type: None - Medications Home Medications: Home Medications Medication Instructions Recorded Confirmed Last Taken Type Fluticasone [Flonase] 1 spray NS QDAY #1 bottle 06/21/14 11/08/16 07/14/14 Rx DOXYCYCLINE Hyclate [Vibramycin 100 mg PO Q12HR #20 capsule 12/17/14 11/08/16 Unknown Rx CAP] metroNIDAZOLE [Flagyl TAB] 500 mg PO Q12HR #20 tab 12/17/11/08/16 Unknown Rx amLODIPine 10 mg PO DAILY #14 tab 06/13/16 11/08/16 Unknown Rx HYDROcodone/APAP 7.5-325 [[place] 1 each PO Q6HR PRN #20 tablet 11/08/16 Unknown Rx 7.5/325] Ibuprofen [Motrin] 800 mg PO Q8HR PRN #30 tablet 11/08/16 Unknown Rx Ondansetron [Zofran Odt] 4 mg PO Q8HR PRN #20 tab.rapdis 11/08/16 Unknown Rx Butalb/Acetamin/Caff 50-325-40 1 tab PO Q6HR PRN #10 tab 06/15/18 Unknown Rx [Fioricet] Naproxen [Naprosyn] 500 mg PO BID #20 tablet 06/15/18 Unknown Rx Benzonatate [Tessalon Perle] 100 mg PO Q8H PRN #20 capsule 08/11/18 Unknown Rx Ibuprofen [Motrin] 600 mg PO Q8H PRN #20 tablet 08/11/18 Unknown Rx Prednisone [predniSONE 10 mg 10 mg PO .TAPER #1 tab.ds.pk 08/11/18 Unknown Rx (6-Day Pack, 21 Tabs)] levoFLOXacin [Levaquin TAB] 750 mg PO QDAY #7 tablet 08/11/18 Unknown Rx Ibuprofen [Motrin] 800 mg PO Q8HR PRN #30 tablet 02/18/19 Unknown Rx diazePAM TAB [Valium] 5 mg PO BID PRN #6 tablet 02/18/19 Unknown Rx Naproxen [EC-Naprosyn] 500 mg PO BID PRN #14 tablet.dr 06/28/20 Unknown Rx Ondansetron [Zofran Odt] 4 mg PO Q8HR PRN #10 tab.rapdis 06/28/20 Unknown Rx Phenazopyridine [Pyridium] 100 mg PO TID #9 tab 06/28/20 Unknown Rx ED Physical Exam - General Limitations: No Limitations General appearance: alert, in no apparent distress - Head Head exam: Present: atraumatic, normocephalic, normal inspection - Eye Eye exam: Present: normal appearance - ENT ENT exam: Present: normal exam, normal orophraynx, mucous membranes moist - Neck Neck exam: Present: normal inspection - Respiratory Respiratory exam: Present: normal lung sounds bilaterally - Cardiovascular Cardiovascular Exam: Present: regular rate, normal rhythm, normal heart sounds - Expanded Upper Extremity Exam Right Hand Wrist exam: Present: normal inspection, tenderness. Absent: full ROM, swelling, laceration, ecchymosis, deformity, crepidus, dislocation Neuro motor exam: Present: wrist extension intact, thumb opposition intact, thumb IP flexion intact, thumb adduction intact, fingers 2-5 abduction intact Neurosensory exam: Present: 2-point discrimination, radial nerve intact, ulnar nerve intact, median nerve intact Vascular: Present: normal capillary refill - Neurological Exam Neurological exam: Present: alert, oriented X3, CN II-XII intact, normal gait - Psychiatric Psychiatric exam: Present: normal mood - Skin Skin exam: Present: warm, intact, normal color ED Course Vital Signs 06/11/21 15:40 Temperature 98.9 F Pulse Rate 92 H Respiratory 20 Rate Blood Pressure 108/78 [Left] O2 Sat by Pulse 98 Oximetry ED Medical Decision Making - Radiology Data Radiology results: report reviewed - Medical Decision Making Patient is 46-year-old female with history of hypertension. Patient presented to the ER complaining of right hand pain mainly to the base of the right thumb. Patient stated that pain started few days ago and is getting worse now. 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 She denied any fever or chills. She also denies any recent injury. X-ray of the right hand is unremarkable except for mild DJD. Patient's symptoms most likely related to De Quervain's disease. Patient given Toradol sixty IM in the ER with improvement of her symptoms and prescription for Naprosyn and advised to follow-up with her primary care physician in the next 2 to 3 days and to return to the ER if she develop any new symptoms. Critical care attestation.: If time is entered above; I have spent that time in minutes in the direct care of this critically ill patient, excluding procedure time. ED Disposition Clinical Impression: De Quervain's disease (tenosynovitis), Hand pain, right Disposition: HOME / SELF CARE / HOMELESS Is pt being admited?: No Condition: Stable Instructions: De Quervain's Tenosynovitis
--- NOTE | 2021-06-11 16:49 | XRay Report ---
RIGHT HAND 3 VIEW(S) INDICATION / CLINICAL INFORMATION: hand pain and swelling COMPARISON: None available. FINDINGS: BONES / JOINT(S): No acute fracture or subluxation. Mild DJD. SOFT TISSUES: No significant abnormality. ADDITIONAL FINDINGS: None. Signer Name: Daniele Reyes MD Signed: 06/11/2021 4:45 PM Workstation Name: [id number]
== END 2021-06-11 17:52 | disposition home or self-care (01) ==
LOC: ED 13:26
DX: M65.4 Radial styloid tenosynovitis [de Quervain] (principal); M79.641 Pain in right hand; I10 Essential (primary) hypertension; G43.909 Migraine, unspecified, not intractable, without status migrainosus; F41.8 Other specified anxiety disorders; F32.A Depression, unspecified; Z79.899 Other long term (current) drug therapy; Z98.890 Other specified postprocedural states
CPT/HCPCS: 73130; 96372; 99283; J1885

== ENCOUNTER 2021-09-20 13:53 | Emergency (ER) | payer MEDICAID ==
[2021-09-20 15:12] VITALS: BP 128/83
[2021-09-20] MEDS ORDERED: KETOROLAC 10 MG TAB PO ONE (17:27)
[2021-09-20] MEDS ORDERED: predniSONE 20 MG TAB PO ONE (17:27)
[2021-09-20] MEDS ORDERED: CYCLOBENZAPRINE 10 MG TAB PO ONE (17:27)
[2021-09-20 18:08] LABS: Bacteria,Urine 1+ /HPF (Negative); Bilirubin,Urine NEG (Negative); Blood,Urine NEG (Negative); Color,Urine Yellow (Yellow); Mucus,Urine 1+ /HPF; Protein,Urine <15 mg/dL mg/dL (Negative)
[2021-09-20 18:20] LABS: HCG Qualitative,Urine Negative (Negative)
--- NOTE | 2021-09-20 18:33 | Emergency Department Report ---
ED Back Pain/Injury HPI - General Chief Complaint: Back Pain/Injury Stated Complaint: BACK PAIN Time Seen by Provider: 09/20/21 17:05 Source: patient Limitations: No Limitations - History of Present Illness Initial Comments: 46-year-old black female with a past medical history of hypertension hyperlipidemia presents to the emergency department for evaluation of 2-day history of bilateral lower back pain. She states that she has not had any injury or trauma and pain is worse with movement. She denies fever, abdominal pain, vaginal discharge, and dysuria. MD Complaint: back pain -: Gradual, days(s) (To) Similar Symptoms Previously: No Place: home Radiation: none Severity: severe Severity scale (0 -10): 10 Quality: aching Consistency: constant Worsens With: movement, walking Associated Symptoms: denies: confusion, weakness, chest pain, numbness, difficulty walking, cough, difficulty urinating, diaphoresis, incontinence, fever/chills, constipation, headaches, abdominal pain, loss of appetite, malaise, nausea/vomiting, rash, seizure, shortness of breath, syncope - Related Data Home Medications Medication Instructions Recorded Confirmed Last Taken Klonopin 1 mg PO QDAY PRN 09/20/21 09/20/21 Unknown Simvastatin 20 mg PO QDAY 09/20/21 09/20/21 1 Day Ago ~09/19/21 Previous Rx's Medication Instructions Recorded Last Taken Type Fluticasone [Flonase] 1 spray NS QDAY #1 bottle 06/21/14 1 Day Ago Rx ~09/19/21 amLODIPine 10 mg PO DAILY #14 tab 06/13/16 1 Day Ago Rx ~09/19/21 Cyclobenzaprine [Flexeril] 10 mg PO TID PRN #21 tab 09/20/21 Unknown Rx Lidocaine [Lidoderm] 1 each TP DAILY PRN #10 patch 09/20/21 Unknown Rx Naproxen [Naprosyn] 500 mg PO BID 7 Days #14 tab 09/20/21 Unknown Rx Allergies Allergy/AdvReac Type Severity Reaction Status Date / Time No Known Allergies Allergy Verified 09/20/21 17:07 ED Review of Systems ROS: Stated complaint: BACK PAIN Other details as noted in HPI Comment: All other systems reviewed and negative Constitutional: denies: chills, fever Respiratory: denies: orthopnea, shortness of breath, SOB with exertion, SOB at rest Cardiovascular: denies: chest pain, palpitations, dyspnea on exertion Gastrointestinal: denies: abdominal pain, nausea, vomiting, diarrhea, hematemesis, melena, hematochezia Genitourinary: denies: urgency, dysuria, frequency, hematuria, discharge Musculoskeletal: back pain. denies: joint swelling, arthralgia, myalgia Neurological: denies: headache, weakness ED Past Medical Hx - Past Medical History Hx Hypertension: Yes Hx Congestive Heart Failure: No Hx Diabetes: No Hx Deep Vein Thrombosis: No Hx Renal Disease: No Hx Sickle Cell Disease: No Hx Headaches / Migraines: Yes Hx Seizures: No Hx Psychiatric Treatment: Yes (ANXIETY / DEPRESSION) Hx Asthma: No Hx COPD: No Hx HIV: No Additional medical history: INSOMNIA, vertigo - Surgical History Additional Surgical History: x2. NASAL SURGERY. TUBAL LIGATION - Social History Smoking Status: Never Smoker Substance Use Type: None - Medications Home Medications: Home Medications Medication Instructions Recorded Confirmed Last Taken Type Fluticasone [Flonase] 1 spray NS QDAY #1 bottle 06/21/14 09/20/21 1 Day Ago Rx ~09/19/21 amLODIPine 10 mg PO DAILY #14 tab 06/13/16 09/20/21 1 Day Ago Rx ~09/19/21 Cyclobenzaprine [Flexeril] 10 mg PO TID PRN #21 tab 09/20/21 Unknown Rx Klonopin 1 mg PO QDAY PRN 09/20/21 09/20/21 Unknown History Lidocaine [Lidoderm] 1 each TP DAILY PRN #10 patch 09/20/21 Unknown Rx Naproxen [Naprosyn] 500 mg PO BID 7 Days #14 tab 09/20/21 Unknown Rx Simvastatin 20 mg PO QDAY 09/20/21 09/20/21 1 Day Ago History ~09/19/21 ED Physical Exam - General Limitations: No Limitations General appearance: alert, in no apparent distress - Head Head exam: Present: atraumatic, normocephalic - Eye Eye exam: Present: normal appearance. Absent: conjunctival injection - Neck Neck exam: Present: normal inspection, full ROM. Absent: tenderness - Respiratory Respiratory exam: Present: normal lung sounds bilaterally. Absent: respiratory distress, wheezes, rales, rhonchi, stridor, chest wall tenderness - Cardiovascular Cardiovascular Exam: Present: regular rate, normal heart sounds - GI/Abdominal GI/Abdominal exam: Present: soft, normal bowel sounds. Absent: distended, tenderness, guarding, rebound, rigid - Extremities Exam Extremities exam: Present: normal inspection, normal capillary refill. Absent: tenderness, pedal edema, joint swelling, calf tenderness - Back Exam Back exam: Present: normal inspection, tenderness (Bilateral lower), paraspinal tenderness. Absent: CVA tenderness (L), vertebral tenderness - Expanded Back Exam Expanded Back exam: Absent: saddle anesthesia - Neurological Exam Neurological exam: Present: alert, oriented X3, normal gait - Psychiatric Psychiatric exam: Present: normal affect, normal mood - Skin Skin exam: Present: warm, dry, intact, normal color ED Course Vital Signs 09/20/21 15:11 Temperature 98.4 F Pulse Rate 98 H Respiratory 20 Rate Blood Pressure 128/83 O2 Sat by Pulse 99 Oximetry ED Medical Decision Making - Medical Decision Making 46-year-old black female with a past medical history of hypertension hyperlipidemia presents to the emergency department for evaluation of 2-day history of bilateral lower back pain. She states that she has not had any injury or trauma and pain is worse with movement. She denies fever, abdominal pain, vaginal discharge, and dysuria. Urine negative for UTI and . Back pain slightly improved after medication. Patient will be discharged home with naproxen, Flexeril, and Lidoderm patch to use as needed for back pain. She is advised to take medications as prescribed and follow-up with primary care provider if no improvement or worsening symptoms. She is advised to return to the emergency department for any concerning signs. She verbalized understanding of and agreement with plan of care. Critical care attestation.: If time is entered above; I have spent that time in minutes in the direct care of this critically ill patient, excluding procedure time. ED Disposition Clinical Impression: Back pain Qualifiers: Back pain location: low back pain Chronicity: acute Back pain laterality: bilateral Sciatica presence: without sciatica Qualified Code(s): M54.50 - Low back pain, unspecified Disposition: 01 HOME / SELF CARE / HOMELESS Is pt being admited?: No Does the pt Need Aspirin: No Condition: Stable Instructions: Acute Back Pain, Adult, Back Injury Prevention, [id number] Additional Instructions: Take medications as prescribed. Follow-up with primary care provider if no improvement or worsening symptoms. Return to the emergency department as needed. Prescriptions: Cyclobenzaprine [Flexeril] 10 mg PO TID PRN #21 tab PRN Reason: Muscle Spasm Lidocaine [Lidoderm] 1 each TP DAILY PRN #10 patch PRN Reason: Pain, Moderate (4-6) Naproxen [Naprosyn] 500 mg PO BID 7 Days #14 tab Referrals: SHAYLA COURTNEY MD [Staff Physician] - 3-5 Days MEGAN EDOUARD MD [Staff Physician] - 3-5 Days Forms: Work/School Release Form(ED) Time of Disposition: 18:36
== END 2021-09-20 19:02 | disposition home or self-care (01) ==
LOC: ED 13:53
DX: M54.50 Low back pain, unspecified (principal); I10 Essential (primary) hypertension
CPT/HCPCS: 81001; 81025; 99283